=== PATIENT | female | born 1985 | race Caucasian/White ===

== ENCOUNTER 2023-08-23 08:43 | Outpatient (OUT) | payer OTHER, SELFPAY ==
--- NOTE | 2023-08-23 | XR_ITS ---
The [address] [address] Patient Name: JENNIFER RUTH MRN: [id number] date: 1985 Sex: F Assigned Patient Location: Current Patient Location: Accession/Order Number: [id number] Exam Date: 08/23/2023 08:46 Report Date: 08/23/2023 13:20 At the request of: DANIELLE PEREZ Procedure: XR ankle RT min 3V PROCEDURE: XR ankle RT min 3V HISTORY: RIGHT ANKLE PAIN , rolled ankle COMPARISON: None. FINDINGS: BONES:No fracture, acute abnormality, or significant arthropathy. SOFT TISSUES:No visible soft tissue swelling. EFFUSION:None visible. OTHER: Negative. XR/XR ankle RT min 3V IMPRESSION: 1. No acute bone abnormality. Electronically authenticated by: BALDO GAUTHIER Date: 08/23/2023 13:20
== END 2023-08-23 08:44 | disposition home or self-care (01) ==
PROVIDERS: Visit Provider Podiatrist Foot & Ankle Surgery
DX: M25.571 Pain in right ankle and joints of right foot (principal)
CPT/HCPCS: 73610

== ENCOUNTER 2023-08-26 09:38 | Outpatient (OUT) | payer OTHER, SELFPAY ==
--- NOTE | 2023-08-26 09:47 | US_ITS ---
[place] [id number] Patient Name: JENNIFER RUTH MRN: [id number] date: 1985 Sex: F Assigned Patient Location: [facility] Current Patient Location: ED.MAIN Accession/Order Number: [id number] Exam Date: 08/26/2023 09:50 Report Date: 08/26/2023 11:33 At the request of: DANIELLE PEREZ Procedure: US venous doppler LE RT EXAM: US venous doppler LE RT HISTORY: Leg Swelling COMPARISON: None. TECHNIQUE: Grayscale, color and Doppler FINDINGS: Region: Right leg Thrombus: Echogenic thrombus in 2 peroneal veins Flow: Absent flow corresponding to thrombus Compressibility: Noncompressibility corresponding to thrombus Augmentation: Normal proximal augmentation US/US venous doppler LE RT IMPRESSION: Occlusive deep vein thrombus identified in both mid calf peroneal veins Electronically authenticated by: GIULIANA KWAN Date: 08/26/2023 11:33
--- OUTSIDE RECORDS SUMMARY | 2023-08-26 09:48 | XMS_ITS | CCD ---
Author Organization [facility] Care Team Providers Care Director Banking Name Role Phone MIGUEL LANIER Attending Unavailable NEO BURTON Primary Care Unavailable Neo Burton Primary Care Provider KELSEA PASTOR Primary Care Unavailable PATRICA HERNANDEZ Attending Unavailable PATRICA HERNANDEZ Referring Unavailable KELSEA PASTOR Primary Care Unavailable MEENAKSHI FIERRO Referring Unavailable NEO BURTON Primary Care Unavailable Allergies Allergy Classification Reported Allergen(s) Allergy Type Date of Onset Reaction(s) Facility (1 source) Adhesive Tape Propensity to adverse reactions to drug 0 [place] (1 source) Amoxicillin Drug Allergy 0 Hives [place] (2 sources) Azithromycin; Translations: [AZITHROMYCIN] Drug Allergy 5 Diarrhea [place] (1 source) ADHESIVE TAPE-SILICONES; Translations: [ADHESIVE TAPE-SILICONES] Propensity to adverse reactions to drug (disorder) 9 [facility] (1 source) AMOXICILLIN-POT CLAVULANATE; Translations: [AMOXICILLIN-POT CLAVULANATE] Propensity to adverse reactions to drug (disorder) 1 [facility] Medications Current Medications Medication Drug Class(es) Dates Sig (Normalized) Sig (Original) acetaminophen 325 mg oral tablet (1 source) Start: 02-16-2020 take 2 tablets by mouth every six hours as needed for pain acetaminophen (TYLENOL) 325 MG tablet Take 2 tablets by mouth every 6 hours as needed for Pain 60 tablet 0 02/16/2020 Active 200 actuat albuterol 0.09 mg/actuat metered dose inhaler (1 source) beta2-Adrenergic Agonist Start: 05-20-2016 albuterol sulfate HFA (PROAIR HFA) 108 (90 BASE) MCG/ACT inhaler Indications: Sore throat 2 PUFFS QID FOR 7 DAYS THEN PRN 1 Inhaler 0 05/20/2016 Active cholecalciferol 1000 unt oral capsule (1 source) Vitamin D take 1 capsule by mouth once daily vitamin D 1000 UNITS CAPS Take 1 capsule by mouth daily 0 Active fluconazole 100 mg oral tablet (1 source) Azole Antifungal take 1 tablet by mouth once daily fluconazole (DIFLUCAN) 100 MG tablet Take 100 mg by mouth daily 0 Active ibuprofen 200 mg oral tablet (2 sources) Nonsteroidal Anti-inflammatory Drug Start: 02-16-2020 take 2 tablets by mouth every six hours as needed for pain ibuprofen (ADVIL;MOTRIN) 200 MG tablet Take 2 tablets by mouth every 6 hours as needed for Pain or Fever 60 tablet 0 02/16/2020 Active Start: 05-20-2016 take 1 tablet by maite th every eight hours as needed for pain ibuprofen (ADVIL;MOTRIN) 800 MG tablet Indications: Sore throat Take 1 tablet by mouth every 8 hours as needed for Pain 120 tablet 1 05/20/2016 Active Multiple Vitamins-Calcium (DAILY VITAMINS FOR WOMEN PO) (1 source) take 1 tablet by mouth once daily Multiple Vitamins-Calcium (DAILY VITAMINS FOR WOMEN PO) Take 1 tablet by mouth daily 0 Active Problems Active Problems Problem Classification Problem Date Documented Da te Episodic/Chronic External cause codes: Fall (1 source) Fall; Translations: [Fall, initial encounter] Spondylosis; intervertebral disc disorders; other back problems (1 source) Acute low back pain; Translations: [Acute bilateral low back pain without sciatica] Episodic Sprains and strains (2 sources) Sprain of unspecified ligament of right ankle, initial encounter; Translations: [Sprain of unspecified ligament of right ankle, initial encounter] Onset: 07-18-2023 Episodic Unclassified (1 source) Ankle Injury Onset: 07-18-2023 Unclassified (1 source) Rt ankle injury Onset: 07-18-2023 Past or Other Problems Problem Classification Problem Date Documented Da te Episodic/Chronic Other upper respiratory infections (2 sources) Acute maxillary sinusitis; Translations: [Sore throat symptom] Onset: 05-20-2016 Resolved: 01-04-2018 06-01-2016 Episodic Results Test Name Value Interpretation Reference Range Facil ity MRI ANKLE RIGHT WO CONTRASTo n 08-11-2023 MRI ANKLE RIGHT WO CONTRAST EXAMINATION: MRI OF THE RIGHT ANKLE WITHOUT CONTRAS, 08/11/2023 12:14 pm TECHNIQUE: Multiplanar multisequence MRI of the right ankle was performed without the administration of intravenous contrast. COMPARISON: None HISTORY: ORDERING SYSTEM PROVIDED HISTORY: Sprain of right ankle, initial encounter. 38-year-old female with right ankle sprain. FINDINGS: SYNDESMOTIC LIGAMENTS: The anterior-inferior tibiofibular ligament, interosseous membrane and posterior-inferior tibiofibular ligaments are normal. LATERAL COLLATERAL LIGAMENT COMPLEX: Fluid surrounds the slightly amorphous anterior and posterior talofibular ligaments. Slight thickening and periligamentous fluid surrounding the calcaneofibular ligament. Findings likely represent grade 1-2 sprain of the lateral collateral ligamentous complex. DELTOID LIGAMENT COMPLEX: Partial thickness tearing of the deep portion of the medial deltoid ligament complex. SINUS TARSI AND SPRING LIGAMENT: Mild edema in the sinus tarsi fat. Lisfranc ligament complex appears continuous/intact. MEDIAL TENDONS: Mild insertional posterior tibialis tendinosis. Flexor digitorum and hallucis longus tendons appear grossly intact without evidence of tearing. LATERAL TENDONS: Low-grade partial split tearing of the posterior peroneus brevis tendon with mild to moderate peroneus brevis tendinosis. Peroneus longus tendon appears intact. ANTERIOR TENDONS: The tibialis anterior, extensor hallucis longus and extensor digitorum longus tendons are normal in position, morphology and signal. ACHILLES TENDON: The Achilles tendon is normal in position, morphology and signal. No associated bursitis. PLANTAR FASCIA: The medial and lateral bundles of the plantar fascia are normal in morphology and signal. There is no evidence of acute plantar fasciitis or tear. No evidence of plantar fascial nodules. TARSAL TUNNEL: There are no obstructing lesions within the tarsal tunnel. BONE MARROW: Nondisplaced fracturing and marrow edema/bone contusion involving the talus centered around the talar neck best seen on image 7, series 2 and series 3. Bone contusions at the medial malleolus and lateral malleolus. No marginal erosions. Bone marrow signal intensity within the remaining visualized osseous structures otherwise grossly unremarkable. No tarsal coalition. Os trigonum. No acute displaced fracture or dislocation. JOINT SPACES: Small tibiotalar and subtalar effusions. Mild degenerative changes of the midfoot and TMT joints. SOFT TISSUES: Mild soft tissue edema about the right ankle. No organized fluid collection. IMPRESSION: 1. Nondisplaced fracturing and marrow edema/bone contusion at the talus primarily centered around the talar neck. 2. Bone contusions at the medial malleolus and lateral malleolus. 3. Mild edema in the soft tissues about the ankle. 4. Small tibiotalar and subtalar effusions. Grade 2 lateral ligamentous sprain. Partial tearing of the deep portion of medial deltoid ligament complex. 5. Low-grade partial split tearing of posterior peroneus brevis tendon with mild to moderate peroneus brevis tendinosis. 6. Mild insertional posterior tibialis tendinosis. Interpreted by: Avinash Rose MD Signed by: Avinash Rose MD 08/11/23 Final result Normal [facility] XR ANKLE RT MIN 3 VWSon 04-0 XR ANKLE RT MIN 3 VWS XR ANKLE RT MIN 3 VWS HISTORY: A 38-year-old female with the history of the twisting injury to the right ankle today. Complaining of pain and swelling on the lateral aspect of the right ankle. TECHNIQUE: Right ankle: 3 views COMPARISON: No relevant prior studies are available for comparison. FINDINGS: There is no evidence of fracture or acute bony pathology. Ankle mortise is intact. Bones and joints are intact. There is soft tissue swelling overlying the lateral malleolus. IMPRESSION: * Soft tissue swelling overlying the lateral malleolus but no evidence of fracture or acute bony pathology. Finalized by Jung Stafford MD on 07/18/2023 1:57 PM Normal [facility] XR LUMBAR SPINE (2-3 VIEWS)o n 02-17-2020 XR LUMBAR SPINE (2-3 VIEWS) EXAMINATION: THREE XRAY VIEWS OF THE LUMBAR SPINE 02/16/2020 10:00 pm COMPARISON: None. HISTORY: ORDERING SYSTEM PROVIDED HISTORY: fall TECHNOLOGIST PROVIDED HISTORY: fall Reason for Exam: right ischial spine tenderness Acuity: Acute Type of Exam: Initial FINDINGS: Lumbar vertebral bodies are normally aligned. Vertebral body heights and disc spaces are well preserved. Pedicles are intact. No acute fracture or traumatic malalignment is present. Minimal degenerative changes present. IMPRESSION: No acute osseous abnormality involving the lumbar spine Interpreted by: Suman Chow DO Signed by: Suman Chow DO 02/16/20 Final result Normal [facility] XR PELVIS (1-2 VIEWS)on XR PELVIS (1-2 VIEWS) EXAMINATION: ONE XRAY VIEW OF THE PELVIS 02/16/2020 10:00 pm COMPARISON: None. HISTORY: ORDERING SYSTEM PROVIDED HISTORY: right ischial spine tenderness TECHNOLOGIST PROVIDED HISTORY: right ischial spine tenderness Reason for Exam: pain Acuity: Acute Type of Exam: Initial FINDINGS: No evidence of pelvic fracture. Bilateral hips demonstrate normal alignment. No focal osseous lesion. SI joints are symmetric. IMPRESSION: No acute abnormality of the pelvis. Interpreted by: Suman Chow DO Signed by: Suman Chow DO 02/16/20 Final result Normal [facility] HCG, ,Urineon 02-15 Beta HCG ( test) Ql (U) Negative Normal [facility] Comment on above: Result Comment: Spec imens with hCG levels near the threshold of the test (25 mIU/mL) may give a negative or indeterminate result. In such cases, another test should be performed with a new specimen in 48-72 hours. If early is suspected clinically in this setting, correlation with quantitative serum b-hCG level is suggested. Performed By: #### U HCG #### [facility] [address] [place] [address] Vp Analysis: Virgil Daniels DO , Urineon 0 Beta HCG ( test) Ql (U) Negative NEGATIVE [facility], [facility] Comment on above: Specimens with hCG l evels near the threshold of the test (25 mIU/mL) may give a negative or indeterminate result. In such cases, another test should be performed with a new specimen in 48-72 hours. If early is suspected clinically in this setting, correlation with quantitative serum b-hCG level is suggested. XR LUMBAR SPINE (2-3 VIEWS)o n 02-16-2020 No acute osseous abnormality involving the lumbar spine [facility] EXAMINATION: THREE XRAY VIEWS OF THE LUMBAR SPINE 02/16/2020 10:00 pm COMPARISON: None. HISTORY: ORDERING SYSTEM PROVIDED HISTORY: fall TECHNOLOGIST PROVIDED HISTORY: fall Reason for Exam: right ischial spine tenderness Acuity: Acute Type of Exam: Initial FINDINGS: Lumbar vertebral bodies are normally aligned. Vertebral body heights and disc spaces are well preserved. Pedicles are intact. No acute fracture or traumatic malalignment is present. Minimal degenerative changes present. [facility] [place] Yonas, [facility] Incoming Radiant Results From [employer] - 02/16/2020 10:16 PM EST EXAMINATION: THREE XRAY VIEWS OF THE LUMBAR SPINE 02/16/2020 10:00 pm COMPARISON: None. HISTORY: ORDERING SYSTEM PROVIDED HISTORY: fall TECHNOLOGIST PROVIDED HISTORY: fall Reason for Exam: right ischial spine tenderness Acuity: Acute Type of Exam: Initial FINDINGS: Lumbar vertebral bodies are normally aligned. Vertebral body heights and disc spaces are well preserved. Pedicles are intact. No acute fracture or traumatic malalignment is present. Minimal degenerative changes present. IMPRESSION: No acute osseous abnormality involving the lumbar spine [facility] [place] XR PELVIS (1-2 VIEWS)on No acute abnormality of the pelvis. [facility] [place] EXAMINATION: ONE XRA Y VIEW OF THE PELVIS 02/16/2020 10:00 pm COMPARISON: None. HISTORY: ORDERING SYSTEM PROVIDED HISTORY: right ischial spine tenderness TECHNOLOGIST PROVIDED HISTORY: right ischial spine tenderness Reason for Exam: pain Acuity: Acute Type of Exam: Initial FINDINGS: No evidence of pelvic fracture. Bilateral hips demonstrate normal alignment. No focal osseous lesion. SI joints are symmetric. [facility] [place], [facility] Incoming Radiant Results From [employer] - 02/16/2020 10:15 PM EST EXAMINATION: ONE XRAY VIEW OF THE PELVIS 02/16/2020 10:00 pm COMPARISON: None. HISTORY: ORDERING SYSTEM PROVIDED HISTORY: right ischial spine tenderness TECHNOLOGIST PROVIDED HISTORY: right ischial spine tenderness Reason for Exam: pain Acuity: Acute Type of Exam: Initial FINDINGS: No evidence of pelvic fracture. Bilateral hips demonstrate normal alignment. No focal osseous lesion. SI joints are symmetric. IMPRESSION: No acute abnormality of the pelvis. [facility] [place] Vital Signs Date Time Vital Sign Value Performing Clinician Najma johnston 02-16-2020 20:16-0500 BMI (Body Mass Index) 30.55 kg/m2 [facility] [place] 02-16-2020 20:16-0500 Body weight 80.74 kg Miguel Lanier [facility] , [place] 02-16-2020 20:16-0500 BP Diastolic 72 mm[Hg] Miguel Lanier [facility] , [place] 02-16-2020 20:16-0500 BP Systolic 125 mm[Hg] Miguel Lanier [facility] , [place] 02-16-2020 20:16-0500 Height 162.6 cm Miguel Lanier [facility] , [place] 02-16-2020 20:16-0500 Pulse (Heart Rate) 89 /min Miguel Lanier [facility], [place] 02-16-2020 20:16-0500 Pulse Oximetry 99 % Miguel Lanier [facility] , [place] 02-16-2020 20:16-0500 Respiratory Rate 18 /min [facility], [place] Encounters Encounter Date Encounter Type Care Provider Facility Start: 08-11-2023 End: 08-14-2023 ambulatory MEENAKSHI Alfredo [facility] Start: 07-18-2023 End: 07-19-2023 Emergency department patient visit [facility] Start: 02-16-2020 End: 02-17-2020 Emergency department patient visit [facility] Start: 02-16-2020 End: 02-16-2020 Emergency department patient visit Miguel Lanier Work Phone: [facility] ED Comment on above: Fall, initial encoun ter (Primary Dx); Acute bilateral low back pain without sciatica Procedures Date Procedure Procedure Detail Performing Clinician Start: 02-17-2020 Radex spine lumbosac ral 2/3 views MIGUEL LANIER Start: 02-17-2020 Radiologic examinati on pelvis 1/2 views MIGUEL LANIER Start: 02-16-2020 Urine test visual color cmprsn meths MIGUEL LANIER Start: 02-16-2020 Radex spine lumbosac ral 2/3 views Nahum Lerma Work Phone: Start: 02-16-2020 Radiologic examinati on pelvis 1/2 views Nahum Lerma Work Phone: Start: 02-16-2020 Urine test visual color cmprsn meths Nahum Lerma Work Phone: Plan of Treatment Date Care Activity Detail Author Start: 12-11-2019 Influenza vaccination Flu vaccine (# 1) [place] Start: 2004 Screening for malign ant neoplasm of cervix Cervical cancer screen [place] Start: 2002 DTaP/Tdap/Td vaccine (1 - Tdap) DTaP/Tdap/Td vaccine (1 - Tdap) [place] Start: 1998 HIV screening HIV screen [facility], [place] Start: 1989 Pneumococcal 0-64 ye ars Vaccine (1 of 1 - PPSV23) Pneumococcal 0-64 years Vaccine (1 of 1 - PPSV23) [place] Start: 1984 Varicella vaccine (1 of 2 - 2-dose childhood series) Varicella vaccine (1 of 2 - 2-dose childhood series) [place] Payers Date Payer Category Payer Unknown [id number] 1985 Unknown [id number] 1985 Unknown [id number] 1985 Unknown [id number] 1985 Unknown [id number] Social History Date Type Detail Facility Start: 02-16-2020 [facility] [place] History of tobacco use Cigarette Smoker M [place] Start: 02-16-2020 Cigarettes smoked current (pack per day) - Reported [place] Start: 02-16-2020 Tobacco use and exposure Never used [place] Start: 02-16-2020 Alcohol intake Current non-dr end maker of alcohol (finding) [place] Sex Assigned At Not on file [place] Exposure to SARS-CoV -2 (event) Not sure [facility] [place], [place] Summary Purpose Family History No Family History Records FoundNo Family History Records FoundNo Family History Records Found Advance Directives No Advanced Directives Records FoundDocuments on File Type Date Recorded 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 For pain use acetaminophen (Tylenol) or ibuprofen(Motrin / Advil), unless prescribed medications that have acetaminophen or ibuprofen (or similar medications) in it. You can take over the counter acetaminophen tablets (1 2 tablets of the 500-mg strength every 6 hours) or ibuprofen tablets (2 tablets every 4 hours). Use an ice pack or bag filled with ice and apply to the injured area 3 4 times a day for 15 20 minutes each time. If the injury is older than 3 days, then use a heating pad to help relax the muscles. PLEASE RETURN TO THE EMERGENCY DEPARTMENT IMMEDIATELY for worsening of pain, inability to move yourmuscle, tingling or loss of sensation, inability to walk, or if you develop any concerning symptomssuch as: high fever not relieved by acetaminophen (Tylenol) and/or ibuprofen (Motrin / Advil), chills, feeling of your heart fluttering or racing, persistent nausea and/or vomiting, vomiting up blood, blood in your stool, loss of consciousness, numbness, weakness or tingling in the arms or legs or change in color of the extremities, changes in mental status, persistent headache, blurry vision, loss of bladder / bowel control, unable to follow up with your physician, or other any other care or co ncern. documented in this encounter Assessments Diagnosis Fall, initial encounter Acute bilateral low back pain without sciatica Additional Source Comments INFORMATION SOURCE (unrecogn ized section and content) DATE CREATED AUTHOR 02/16/2020 [facility] DATE CREATED AUTHOR AUTHOR'S ORGANIZ ATION 07/19/2023 [facility] DATE CREATED AUTHOR AUTHOR'S ORGANIZ ATION 08/14/2023 [facility] Reason for Visit (unrecogniz ed section and content) Reason Comments Fall Back Pain Hip Pain FOR RECORDS PERTAINING TO PATIENTS WHO ARE OR HAVE BEEN ENROLLED IN A CHEMICAL DEPENDENCY/SUBSTANCEABUSE PROGRAM, SOME INFORMATION MAY BE OMITTED. This clinical summary was aggregated from multiple sources. Caution should be exercised in using it in the provision of clinical care. This summary normalizes information from multiple sources, and as a consequence, information in this document may materially change the coding, format and clinical context of patient data. In addition, data may be omitted in some cases. CLINICAL DECISIONS SHOULD BE BASED ON THE PRIMARY CLINICAL RECORDS. [facility]. provides no warranty or guarantee of the accuracy or completeness of information in this document.
== END 2023-08-26 09:39 | disposition home or self-care (01) ==
LOC: RAD 09:39
PROVIDERS: Visit Provider Podiatrist Foot & Ankle Surgery
DX: R22.42 Localized swelling, mass and lump, left lower limb (principal); I82.451 Acute embolism and thrombosis of right peroneal vein
CPT/HCPCS: 93971

== ENCOUNTER 2023-08-26 10:32 | Emergency (ER) | payer OTHER, SELFPAY ==
[2023-08-26 10:38] VITALS: BP 132/63; PULSE 101; TEMP 36.9; O2SAT 98; BMI 30.9
--- OUTSIDE RECORDS SUMMARY | 2023-08-26 10:46 | XMS_ITS | CCD ---
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 Name Role Phone MIGUEL LANIER Attending Unavailable NEO BURTON Primary Care Unavailable Neo Burton Primary Care Provider [phone] KELSEA PASTOR Primary Care Unavailable PATRICA HERNANDEZ Attending Unavailable PATRICA HERNANDEZ Referring Unavailable KELSEA PASTOR Primary Care Unavailable MEENAKSHI FIERRO Referring Unavailable NEO BURTON Primary Care Unavailable Allergies Allergy Classification Reported Allergen(s) Allergy Type Date of Onset Reaction(s) Facility (1 source) Adhesive Tape Propensity to adverse reactions to drug 0 Rash [place] (1 source) Amoxicillin Drug Allergy 0 Hives [place] (2 sources) Azithromycin; Translations: [AZITHROMYCIN] Drug Allergy 5 Diarrhea [place] (1 source) ADHESIVE TAPE-SILICONES; Translations: [ADHESIVE [...] Avinash Rose MD 08/11/23 Final result Normal [facility] XR ANKLE RT MIN 3 VWSon [...] Stafford MD on 07/18/2023 1:57 PM Normal [facility] XR LUMBAR SPINE (2-3 VIEWS)o n [...] Suman Chow DO 02/16/20 Final result Normal [facility] XR PELVIS (1-2 VIEWS)on XR PELVIS (1-2 [...] Suman Chow DO 02/16/20 Final result Normal [facility] HCG, ,Urineon 02-15 Beta HCG ( test) Ql (U) Negative Normal NEG [facility] Comment on above: Result Comment: Spec imens with hCG levels near the threshold of the test (25 mIU/mL) may give a negative or indeterminate result. In such cases, another test should be performed with a new specimen in 48-72 hours. If early is suspected clinically in this setting, correlation with quantitative serum b-hCG level is suggested. Performed By: #### U HCG #### [facility] [address] [place] [address] Insurance Billing Specialist: Virgil Daniels DO , Urineon 0 Beta HCG ( test) Ql (U) Negative NEGATIVE [facility], [employer] Comment on above: Specimens with hCG l [...] acute osseous abnormality involving the lumbar spine [facility], [employer] EXAMINATION: THREE XRAY VIEWS OF THE LUMBAR [...] malalignment is present. Minimal degenerative changes present. [facility] [place], [facility] Incoming Radiant Results From [email or web address] - 02/16/2020 10:16 PM EST EXAMINATION: THREE [...] acute osseous abnormality involving the lumbar spine [facility] [place] XR PELVIS (1-2 VIEWS)on No acute abnormality of the pelvis. [facility] [place] EXAMINATION: ONE XRA Y VIEW OF THE PELVIS 02/16/2020 10:00 pm COMPARISON: None. HISTORY: ORDERING SYSTEM PROVIDED HISTORY: right ischial spine tenderness TECHNOLOGIST PROVIDED HISTORY: right ischial spine tenderness Reason for Exam: pain Acuity: Acute Type of Exam: Initial FINDINGS: No evidence of pelvic fracture. Bilateral hips demonstrate normal alignment. No focal osseous lesion. SI joints are symmetric. [facility] [place], [facility] Incoming Radiant Results From [employer] - 02/16/2020 10:15 PM EST EXAMINATION: ONE [...] IMPRESSION: No acute abnormality of the pelvis. [facility] [place] Vital Signs Date Time Vital Sign Value Performing Clinician Najma johnston 02-16-2020 20:16-0500 BMI (Body Mass Index) 30.55 kg/m2 [facility] [place] 02-16-2020 20:16-0500 Body weight 80.74 kg Miguel Lanier [facility] , [place] 02-16-2020 20:16-0500 BP Diastolic 72 mm[Hg] Miguel Lanier [facility] , [place] 02-16-2020 20:16-0500 BP Systolic 125 mm[Hg] Miguel Lanier [facility] , [place] 02-16-2020 20:16-0500 Height 162.6 cm Miguel Lanier [facility] , [place] 02-16-2020 20:16-0500 Pulse (Heart Rate) 89 /min Miguel Lanier [facility], [place] 02-16-2020 20:16-0500 Pulse Oximetry 99 % Miguel Lanier [facility] , [place] 02-16-2020 20:16-0500 Respiratory Rate 18 /min Miguel [facility] H, [place] Encounters Encounter Date Encounter Type Care Provider Facility Start: 08-11-2023 End: 08-14-2023 ambulatory MEENAKSHI [facility]o [facility] Start: 07-18-2023 End: 07-19-2023 Emergency department patient visit [facility] Start: 02-16-2020 End: 02-17-2020 Emergency department patient visit [facility] Start: 02-16-2020 End: 02-16-2020 Emergency department patient visit Miguel Lanier Work Phone: [facility] ED Comment on above: Fall, initial encoun [...] 12-11-2019 Influenza vaccination Flu vaccine (# 1) [place], [place] Start: 2004 Screening for malign ant neoplasm of cervix Cervical cancer screen [place], [place] Start: 2002 DTaP/Tdap/Td vaccine (1 - Tdap) DTaP/Tdap/Td vaccine (1 - Tdap) [place], [place] Start: 1998 HIV screening HIV screen [facility] [place] Start: 1989 Pneumococcal 0-64 ye ars Vaccine (1 of 1 - PPSV23) Pneumococcal 0-64 years Vaccine (1 of 1 - PPSV23) [place], [place] Start: 1984 Varicella vaccine (1 of 2 - 2-dose childhood series) Varicella vaccine (1 of 2 - 2-dose childhood series) [place] Payers Date Payer Category Payer Unknown [id number] 1985 Unknown [id number] 1985 Unknown [id number] 1983 Unknown [id number] 1983 Unknown [id number] [id number] Social History Date Type Detail Facility Start: 02-16-2020 [facility] day [place] History of tobacco use Cigarette Smoker M [place] Start: 02-16-2020 Cigarettes smoked current (pack per day) - Reported [place] Start: 02-16-2020 Tobacco use and exposure Never used [place] Start: 02-16-2020 Alcohol intake Current non-dr clamper of alcohol (finding) [place] Sex Assigned At Not on file [place] Exposure to SARS-CoV -2 (event) Not sure [facility] [place] Summary Purpose Family History No Family History Records FoundNo Family History Records FoundNo Family History Records Found Advance Directives No Advanced Directives Records FoundDocuments on File Type Date Recorded 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 [facility] [employer] [facility]. provides no warranty or guarantee of the accuracy or completeness of information in this document.
--- NOTE | 2023-08-26 12:54 | ED_ITS ---
HPI HPI - General Adult General Chief complaint: Skin/Abscess/Foreign Body Stated complaint: RIGHT LEG BLOOD CLOT, CLINIC REFERRAL Time Seen by Provider: 08/26/23 12:25 Source: patient Mode of arrival: walk-in Limitations: no limitations History of Present Illness HPI narrative: Patient is a 38-year-old female who is presenting to the ER today from ultrasound with a noted right mid calf DVT to both peroneal veins. Patient has no chest pain, no shortness of breath. Patient had a injury in early July to her right lower extremity/right foot. Patient initially saw her PCP Dr. Varghese, and was diagnosed with right ankle/foot sprain. Patient did follow-up with Dr. Wright, it was noted that patient did have a talus fracture along with the sprains. Patient has been in a surgical boot since. Patient is also had a knee scooter that she has been using to help with mobility. Patient is been doing a lot of driving up to the [facility] secondary to her mom's medical conditions and hospital stays. Patient has no previous DVT. No control. Patient arrived on crutches. Sisters at bedside. Patient has rapid speech, admittedly anxious. Mild swelling to the right calf compared to left. No other acute complaints. All systems are negative except as noted/marked. All systems reviewed and otherwise negative. Nurses note and vital signs reviewed and patient is not hypoxic. General: The patient appears well and in no apparent distress. Patient is resting comfortably on cart. Patient is not toxic, lethargic, or listless Skin: Warm, dry, no pallor noted. There is no rash noted. No petechiae, purpura. Head: Normocephalic, atraumatic Eye: Normal conjunctiva, no drainage, EOMI. PERRL Ears, Nose, Mouth, and Throat: oral mucosa is moist. Nares patent. Mouth without vesicles. Cardiovascular: Regular Rate and Rhythm, no murmur, gallop, rub Respiratory: Patient is in no distress, no accessory muscle use, lungs are clear to auscultation, no wheezing, rales or rhonchi Musculoskeletal: Patient has full range of motion of all of the extremities. Patient has no tenderness to palpation to the right Achilles, mild tenderness to palpation to bilateral malleoli of the right ankle. Patient has moderate tenderness to palpation to the right mid calf, mild unilateral swelling to the right leg. No ecchymosis, no pitting edema. She has no pain the posterior aspect of the right popliteal fossa or the right posterior thigh. Otherwise patient has no motor, sensory, or focal neurological deficits Neurological: A&O x4, normal speech Psychiatric: Cooperative Related Data Previous Rx's ?Medication ?Instructions ?Recorded apixaban 5 mg (74 tabs) tablets in 5 mg PO Q12H #74 ea 08/26/23 a dose pack (Eliquis DVT-PE Treat 30D Start) Allergies Allergy/AdvReac Type Severity Reaction Status Date / Time adhesive tape AdvReac Mild Verified 08/26/23 10:41 amoxicillin [From Augmentin] AdvReac Mild Verified 08/26/23 10:41 clavulanic acid AdvReac Mild Verified 08/26/23 10:41 [From Augmentin] onion AdvReac Mild Verified 08/26/23 10:41 Opioid HPI Opioid Management Most Recent Opioid Data: No Data to Display Exam Constitutional Vital Signs, click to edit/add: Last Vital Signs Temp 98.4 F 08/26/23 10:38 Pulse 101 H 08/26/23 10:38 Resp 18 08/26/23 10:38 BP 132/63 08/26/23 10:38 Pulse Ox 98 08/26/23 10:38 O2 Del Method Room Air 08/26/23 10:38 Course Vital Signs Vital signs: Vital Signs Temperature 98.4 F 08/26/23 10:38 Pulse Rate 101 H 08/26/23 10:38 Respiratory Rate 18 08/26/23 10:38 Blood Pressure 132/63 08/26/23 10:38 Pulse Oximetry 98 08/26/23 10:38 Oxygen Delivery Method Room Air 08/26/23 10:38 Temperature 98.4 F 08/26/23 10:38 Pulse Rate 101 H 08/26/23 10:38 Respiratory Rate 18 08/26/23 10:38 Blood Pressure 132/63 08/26/23 10:38 Pulse Oximetry 98 08/26/23 10:38 Oxygen Delivery Method Room Air 08/26/23 10:38 Medical Decision Making MDM Narrative Medical decision making narrative: Patient had a outpatient ultrasound that showed right calf DVT. Patient was started on Eliquis. I have called Dr. Wright's office, nobody is available or in the office today. Patient does have a PCP, but she is following up with a new PCP in 3 weeks. Patient therefore was given 1 month of Eliquis to help her with treatment of right calf DVT. Patient has no other symptoms of chest pain, shortness of breath, or any other secondary concerns with right calf DVT. Patient is no longer using the knee scooter. Patient will continue to use crutches. Patient will continue wearing surgical boot. Ice elevation was discussed. No questions at discharge. The initial prescription I sent for the Eliquis starter pack was not covered by insurance. I did speak to the pharmacist at [facility] in [place]. I was able to write patient generic tablets of the Eliquis starter pack that will be covered by insurance. Patient is aware of this, thankful for time. Discharge Plan Discharge Stand Alone Forms: Portal Instructions Chief Complaint: Skin/Abscess/Foreign Body Clinical Impression: Acute deep vein thrombosis (DVT) of calf muscle vein of right lower extremity Patient Disposition: Home, Self-Care Time of Disposition Decision: 12:49 Condition: Fair Prescriptions / Home Meds: New Eliquis DVT-PE Treat 30D Start 5 mg (74 tabs) tablets,dose pack 5 mg PO Q12H Qty: 74 0RF Rx Instructions: As directed Print Language: [place] Instructions: Deep Vein Thrombosis (ED) Additional Instructions: Start taking your Eliquis today. Follow directions. Follow-up with PCP or Dr. Wright to help continue to manage Eliquis. Education of DVT was done at bedside and on discharge paperwork. You are giving a Eliquis coupon and starter pack information from the ER. Referrals: Physician,Non-Staff, [Primary Care Provider] - 1 week Discharge Date/Time: 08/26/23 13:05
== END 2023-08-26 13:05 | disposition home or self-care (01) ==
PROVIDERS: Emergency Provider Emergency Medicine
DX: I82.451 Acute embolism and thrombosis of right peroneal vein (principal)
CPT/HCPCS: 93971; 99283

== ENCOUNTER 2023-08-30 07:44 | Outpatient (OUT) | payer OTHER, SELFPAY ==
--- NOTE | 2023-08-30 07:47 | CT_ITS ---
The [address] [address] Patient Name: JENNIFER RUTH MRN: [id number] date: 1985 Sex: F Assigned Patient Location: CT Current Patient Location: Accession/Order Number: [id number] Exam Date: 08/30/2023 07:54 Report Date: 08/31/2023 05:32 At the request of: DANIELLE PEREZ Procedure: CT ankle RT wo con EXAMINATION: CT ankle RT wo con HISTORY: Talar Neck Fracture COMPARISON: XR ankle right 08/23/2023, MRI ankle right 09-01 TECHNIQUE: Multi-planar CT images were created without and/or with IV contrast according to examination type. Dose reduction techniques were achieved by using automated exposure control and/or adjustment of mA and/or kV according to patient size and/or use of iterative reconstruction technique. FINDINGS: BONES: No visible fracture, dislocation, or bone lesion. SOFT TISSUES: Negative. No visible soft tissue swelling. EFFUSION: None visible. OTHER: Negative. CT/CT ankle RT wo con IMPRESSION: 1. No appreciable acute bone abnormality with specific attention to the talar neck. Prior MRI study showed prominent edema within the talus/talar neck region. No visible fracture on today's CT study. No cortical disruption or increased trabecular density. Electronically authenticated by: BALDO GAUTHIER Date: 08/31/2023 05:32
--- OUTSIDE RECORDS SUMMARY | 2023-08-30 07:59 | XMS_ITS | CCD ---
Author Organization [facility] Care Team Providers Care Parts Fabricator Name Role Phone MIGUEL LANIER Attending Unavailable NEO BURTON Primary Care Unavailable Neo Burton Primary Care Provider [phone] KELSEA PASTOR Primary Care Unavailable PATRICA HERNANDEZ Attending Unavailable PATRICA HERNANDEZ Referring Unavailable KELSEA PASTOR Primary Care Unavailable MEENAKSHI FIERRO Referring Unavailable NEO BURTON Primary Care Unavailable Allergies Allergy Classification Reported Allergen(s) Allergy Type Date of Onset Reaction(s) Facility (1 source) Adhesive Tape Propensity to adverse reactions to drug 0 Rash [place], [place] (1 source) Amoxicillin Drug Allergy 0 Hives [place], [place] (2 sources) Azithromycin; Translations: [AZITHROMYCIN] Drug Allergy 5 Diarrhea [place], [place] (1 source) ADHESIVE TAPE-SILICONES; Translations: [ADHESIVE [...] Avinash Rose MD 08/11/23 Final result Normal [facility] XR ANKLE RT MIN 3 VWSon [...] Stafford MD on 07/18/2023 1:57 PM Normal [facility] XR LUMBAR SPINE (2-3 VIEWS)o n [...] Suman Chow DO 02/16/20 Final result Normal [facility] XR PELVIS (1-2 VIEWS)on XR PELVIS (1-2 [...] Suman Chow DO 02/16/20 Final result Normal [facility] HCG, ,Urineon 02-15 Beta HCG ( test) Ql (U) Negative Normal NEG [facility] Comment on above: Result Comment: Spec imens with hCG levels near the threshold of the test (25 mIU/mL) may give a negative or indeterminate result. In such cases, another test should be performed with a new specimen in 48-72 hours. If early is suspected clinically in this setting, correlation with quantitative serum b-hCG level is suggested. Performed By: #### U HCG #### [facility] [address] [place] [address] Electronic Warfare Technician: Virgil Daniels DO , Urineon 0 Beta HCG ( test) Ql (U) Negative NEGATIVE [facility], [employer] Comment on above: Specimens with hCG l [...] acute osseous abnormality involving the lumbar spine [facility], [facility] EXAMINATION: THREE XRAY VIEWS OF THE LUMBAR [...] malalignment is present. Minimal degenerative changes present. [facility] [employer] [place], [facility] Incoming Radiant Results From [employer] - 02/16/2020 10:16 PM EST EXAMINATION: THREE [...] acute osseous abnormality involving the lumbar spine [facility] [place] XR PELVIS (1-2 VIEWS)on No acute abnormality of the pelvis. [facility] [place] EXAMINATION: ONE XRA Y VIEW OF THE PELVIS 02/16/2020 10:00 pm COMPARISON: None. HISTORY: ORDERING SYSTEM PROVIDED HISTORY: right ischial spine tenderness TECHNOLOGIST PROVIDED HISTORY: right ischial spine tenderness Reason for Exam: pain Acuity: Acute Type of Exam: Initial FINDINGS: No evidence of pelvic fracture. Bilateral hips demonstrate normal alignment. No focal osseous lesion. SI joints are symmetric. [facility] [place], [facility] Incoming Radiant Results From [employer] - 02/16/2020 10:15 PM EST EXAMINATION: ONE [...] IMPRESSION: No acute abnormality of the pelvis. [facility] [place] Vital Signs Date Time Vital Sign Value Performing Clinician Najma johnston 02-16-2020 20:16-0500 BMI (Body Mass Index) 30.55 kg/m2 Miguel Lanier [place] 02-16-2020 20:16-0500 Body weight 80.74 kg Miguel Lanier [facility] , [place] 02-16-2020 20:16-0500 BP Diastolic 72 mm[Hg] Miguel Lanier [facility] , [place] 02-16-2020 20:16-0500 BP Systolic 125 mm[Hg] Miguel Lanier [facility] , [place] 02-16-2020 20:16-0500 Height 162.6 cm Miguel [facility]ier [facility] , [place] 02-16-2020 20:16-0500 Pulse (Heart Rate) 89 /min Miguel Lanier [facility], [place] 02-16-2020 20:16-0500 Pulse Oximetry 99 % Miguel Lanier [facility] , [place] 02-16-2020 20:16-0500 Respiratory Rate 18 /min Miguel Lanier [facility], [place] Encounters Encounter Date Encounter Type Care Provider Facility Start: 08-11-2023 End: 08-14-2023 ambulatory MEENAKSHI FIERRO [facility] Start: 07-18-2023 End: 07-19-2023 Emergency department patient visit [facility] Start: 02-16-2020 End: 02-17-2020 Emergency department patient visit [facility] Start: 02-16-2020 End: 02-16-2020 Emergency department patient visit Miguel Lanier Work Phone: [facility] ED Comment on above: Fall, initial encoun [...] 12-11-2019 Influenza vaccination Flu vaccine (# 1) [place], [place] Start: 2004 Screening for malign ant neoplasm of cervix Cervical cancer screen [place], [place] Start: 2002 DTaP/Tdap/Td vaccine (1 - Tdap) DTaP/Tdap/Td vaccine (1 - Tdap) [place] Start: 1998 [facility] [place] [place] Start: 1989 Pneumococcal 0-64 ye ars Vaccine (1 of 1 - PPSV23) Pneumococcal 0-64 years Vaccine (1 of 1 - PPSV23) [place], [place] Start: 1984 Varicella vaccine (1 of 2 - 2-dose childhood series) Varicella vaccine (1 of 2 - 2-dose childhood series) [place], [place] Payers Date Payer Category Payer Unknown [id number] 1985 Unknown [id number] 1985 Unknown [id number] [id number] 1985 Unknown [id number] 1985 Unknown [id number] Social History Date Type Detail Facility Start: 02-16-2020 [facility] day smoker [place], [place] History of tobacco use Cigarette Smoker M [place], [place] Start: 02-16-2020 Cigarettes smoked current (pack per day) - Reported [place], [place] Start: 02-16-2020 Tobacco use and exposure Never used [place], [place] Start: 02-16-2020 Alcohol intake Current non-dr print journalist of alcohol (finding) [place], [place] Sex Assigned At Not on file [place] Exposure to SARS-CoV -2 (event) Not sure [facility] [place] [place] Summary Purpose Family History No Family History Records FoundNo Family History Records FoundNo Family History Records Found Advance Directives No Advanced Directives Records FoundDocuments on File Type Date Recorded 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 [facility] [employer] [facility]. provides no warranty or guarantee of the accuracy or completeness of information in this document.
== END 2023-08-30 07:45 | disposition home or self-care (01) ==
LOC: CT 07:44
PROVIDERS: Visit Provider Podiatrist Foot & Ankle Surgery
DX: S92.114A Nondisplaced fracture of neck of right talus, initial encounter for closed fracture (principal)
CPT/HCPCS: 73700

== ENCOUNTER 2023-10-11 13:36 | Outpatient (OUT) | payer OTHER, SELFPAY ==
--- NOTE | 2023-10-11 | XR_ITS ---
The [address] [address] Patient Name: JENNIFER RUTH MRN: [id number] date: 1985 Sex: F Assigned Patient Location: Current Patient Location: Accession/Order Number: [id number] Exam Date: 10/11/2023 13:40 Report Date: 10/12/2023 15:25 At the request of: DANIELLE PEREZ Procedure: XR ankle RT min 3V PROCEDURE: XR ankle RT min 3V HISTORY: RIGHT ANKLE PAIN COMPARISON: XR ankle right 08/23/2023 FINDINGS: BONES:No acute fracture or appreciable healing fracture. Smooth articular surfaces and uniform joint spacing. SOFT TISSUES:Soft tissue swelling anterior to the ankle joint; nonspecific. EFFUSION:None visible. OTHER: Negative. XR/XR ankle RT min 3V IMPRESSION: 1. No appreciable acute bone abnormality, healing fracture, or significant degenerative changes. Electronically authenticated by: BALDO GAUTHIER Date: 10/12/2023 15:25
--- OUTSIDE RECORDS SUMMARY | 2023-10-11 13:56 | XMS_ITS ---
Patient Summarization (C-CDA 2.1 CCD) Created on: October 11, 2023 JENNIFER RUTH : 1985 Sex: Undifferentiated Author Organization Sample organization Care Team Providers Care Tire Fixer Name Role Phone MIGUEL LANIER Attending Unavailable PRINCESS, NEO T Primary Care Unavailable Princess, Neo T Primary Care Provider MEENAKSHI FIERRO Referring Unavailable PRINCESS, NEO T Primary Care Unavailable PASTOR, KELSEA A Primary Care Unavailable DAVID, PATRICA Attending Unavailable DAVID, PATRICA Referring Unavailable PASTOR, KELSEA A Primary Care Unavailable PASTOR, KELSEA A Primary Care Unavailable GIULIANA HERMOSILLO Attending Unavailable Mandeep DE PAZ Attending Unavailable PASTOR, KELSEA A. Referring Unavailable PASTOR, KELSEA A. Primary Care Unavailable Mandeep DE PAZ BRIONNA Referring Unavailable PASTOR, KELSEA A. Primary Care Unavailable PASTOR, KELSEA A Referring Unavailable APSTOR, KELSEA A Primary Care Unavailable MARILU ANGUIANO Attending Unavailable PASTOR, KELSEA A Referring Unavailable PASTOR, KELSEA A Primary Care Unavailable Allergies Allergy Classification Reported Allergen(s) Allergy Type Date of Onset Reaction(s) Facility (1 source) Adhesive Tape Propensity to adverse reactions to drug 0 Rash [place], [place] (2 sources) Amoxicillin; Translations: [AMOXICILLIN] Drug Allergy 0 Hives [place] (4 sources) Azithromycin; Translations: [AZITHROMYCIN] Drug Allergy 5 Diarrhea [place] (3 sources) ADHESIVE TAPE-SILICONES; Translations: [ADHESIVE TAPE-SILICONES] Propensity to adverse reactions to drug (disorder) 9 [facility] (3 sources) AMOXICILLIN-POT CLAVULANATE; Translations: [AMOXICILLIN-POT CLAVULANATE] Propensity to adverse reactions to drug (disorder) 1 [facility] Encounters Encounter Date Encounter Type Care Provider Facility Start: 10-10-2023 End: 10-10-2023 ambulatory MARILU Martinez [facility] Start: 09-20-2023 ambulatory KELSEA Alfredo [facility] Start: 09-16-2023 End: 09-16-2023 ambulatory [facility] Start: 09-16-2023 End: 09-16-2023 ambulatory [facility] Start: 09-15-2023 End: 09-15-2023 Emergency department patient visit KELSEA A [facility] Start: 08-11-2023 End: 08-14-2023 ambulatory MEENAKSHI FIERRO [facility] Start: 07-18-2023 End: 07-19-2023 Emergency department patient visit [facility] Start: 02-16-2020 End: 02-17-2020 Emergency department patient visit MIGUEL LANIER [facility] Start: 02-16-2020 End: 02-16-2020 Emergency department patient visit Miguel [facility] Work Phone: [facility] ED Comment on above: Fall, initial encoun ter (Primary Dx); Acute bilateral low back pain without sciatica Medications Current Medications Medication Drug Class(es) Dates [...] 1 tablet by mouth daily 0 Active Payers Date Payer Category Payer Unknown [id number] 1985 Unknown [id number] 2.16.8 [id number] 1985 Unknown [id number] 2.16. [id number] 1985 Unknown [id number] 2.16.8 [id number] 1985 Unknown [id number] 2.16.8 [id number] 1985 Unknown [id number] 2.16.8 [id number] 1985 Unknown [id number] 2.16.8 [id number] 1985 Unknown [id number] 2.16.8 [id number] 1985 Unknown [id number] 2.16.8 [id number] 1985 Unknown [id number] 2.16.8 [id number] Plan of Treatment Date Care Activity Detail Author Start: 12-11-2019 Influenza vaccination Flu vaccine (# 1) [place], [place] Start: 2004 Screening for malign ant neoplasm of cervix Cervical cancer screen [place], [place] Start: 2002 DTaP/Tdap/Td vaccine (1 - Tdap) DTaP/Tdap/Td vaccine (1 - Tdap) [place] Start: 1998 HIV screening HIV screen [facility] [place] Start: 1989 Pneumococcal 0-64 ye ars Vaccine (1 of 1 - PPSV23) Pneumococcal 0-64 years Vaccine (1 of 1 - PPSV23) [place], [place] Start: 1984 Varicella vaccine (1 of 2 - 2-dose childhood series) Varicella vaccine (1 of 2 - 2-dose childhood series) [place] Problems Active Problems Problem Classification Problem Date Documented Da te Episodic/Chronic External cause codes: Fall (1 source) Fall; Translations: [Fall, initial encounter] Other connective tissue disease (1 source) Pain in right leg; Translations: [Pain in right leg] Onset: 09-15-2023 Episodic Other connective tissue disease (1 source) Pain in lower limb Onset: 09-15-2023 Episodic Other screening for suspected conditions (not mental disorders or infectious disease) (1 source) Encounter for screening mammogram for malignant neoplasm of breast; Translations: [Encounter for screening mammogram for malignant neoplasm of breast] Onset: 10-10-2023 Episodic Phlebitis; thrombophlebitis and thromboembolism (1 source) Acute embolism and thrombosis of unspecified deep veins of right lower extremity; Translations: [Acute embolism and thrombosis of unspecified deep veins of right lower extremity] Onset: 09-16-2023 Episodic Residual codes; unclassified (1 source) Pain, unspecified; Translations: [Pain, unspecified] Onset: 09-20-2023 Episodic Spondylosis; intervertebral disc disorders; other back problems [...] (1 source) Rt ankle injury Onset: 07-18-2023 Unclassified (1 source) New Patient Onset: 10-10-2023 Past or Other Problems Problem Classification Problem Date Documented Da te Episodic/Chronic Other upper respiratory infections (2 sources) Acute maxillary sinusitis; Translations: [Sore throat symptom] Onset: 05-20-2016 Resolved: 01-04-2018 06-01-2016 Episodic Procedures Date Procedure Procedure Detail Performing Clinician [...] color cmprsn meths Nahum Lerma Work Phone: Results Test Name Value Interpretation Reference Range [...] Avinash Rose MD 08/11/23 Final result Normal [facility] XR ANKLE RT MIN 3 VWSon 04-0 [...] Stafford MD on 07/18/2023 1:57 PM Normal [facility] XR LUMBAR SPINE (2-3 VIEWS)o n 02-17-2020 [...] Suman Chow DO 02/16/20 Final result Normal [facility] XR PELVIS (1-2 VIEWS)on XR PELVIS [...] Suman Chow DO 02/16/20 Final result Normal [facility] HCG, ,Urineon 02-15 Beta HCG ( test) Ql (U) Negative Normal NEG [facility] Comment on above: Result Comment: Spec imens with hCG levels near the threshold of the test (25 mIU/mL) may give a negative or indeterminate result. In such cases, another test should be performed with a new specimen in 48-72 hours. If early is suspected clinically in this setting, correlation with quantitative serum b-hCG level is suggested. Performed By: #### U HCG #### [facility] [address] [place] [address] Classroom Technology Coach: Virgil Daniels DO , Urineon 0 Beta HCG ( test) Ql (U) Negative NEGATIVE [place], [place] Comment on above: Specimens with hCG l [...] acute osseous abnormality involving the lumbar spine [place] EXAMINATION: THREE XRAY VIEWS OF THE LUMBAR [...] malalignment is present. Minimal degenerative changes present. [place], [place] Yonas, [facility] Incoming Radiant Results From [employer] - 02/16/2020 10:16 PM EST EXAMINATION: THREE [...] acute osseous abnormality involving the lumbar spine [place] XR PELVIS (1-2 VIEWS)on No acute abnormality of the pelvis. [place] EXAMINATION: ONE XRA Y VIEW OF THE PELVIS 02/16/2020 10:00 pm COMPARISON: None. HISTORY: ORDERING SYSTEM PROVIDED HISTORY: right ischial spine tenderness TECHNOLOGIST PROVIDED HISTORY: right ischial spine tenderness Reason for Exam: pain Acuity: Acute Type of Exam: Initial FINDINGS: No evidence of pelvic fracture. Bilateral hips demonstrate normal alignment. No focal osseous lesion. SI joints are symmetric. [place], [place] Y[place], [facility] Incoming Radiant Results From [employer] - 02/16/2020 10:15 PM EST EXAMINATION: ONE [...] IMPRESSION: No acute abnormality of the pelvis. 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) [place] History of tobacco use Cigarette Smoker M [place], [place] Sex Assigned At Not on file [place] Exposure to SARS-CoV -2 (event) Not sure [place] Vital Signs Date Time Vital Sign Value Performing Clinician Faci lity 02-16-2020 20:16-0500 BMI (Body Mass Index) 30.55 kg/m2 Miguel Lanier [place], [place] 02-16-2020 20:16-0500 Body weight 80.74 kg Miguel [place] 02-16-2020 20:16-0500 BP Diastolic 72 mm[Hg] [place] 02-16-2020 20:16-0500 BP Systolic 125 mm[Hg] Miguel [facility] , [place] 02-16-2020 20:16-0500 Height 162.6 cm Miguel [place] 02-16-2020 20:16-0500 Pulse (Heart Rate) 89 /min Miguel [facility] AMILCAR 02-16-2020 20:16-0500 Pulse Oximetry 99 % Miguel [place] 02-16-2020 20:16-0500 Respiratory Rate 18 /min Miguel [facility] [place], [place] Summary Purpose Family History No Family History Records FoundNo Family History Records FoundNo Family History Records FoundNo Family History Records FoundNo Family History Records Found Advance Directives No Advanced Directives Records FoundDocuments on File Type Date 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 ACP-Advance Directive ACP-Power of Laundry Pricing Clerk Discharge Instructions * Instructions* Nahum Lerma MD [...] and content) DATE CREATED AUTHOR 02/16/2020 [facility] DATE CREATED AUTHOR AUTHOR'S ORGANIZ ATION 08/14/2023 [facility] DATE CREATED AUTHOR AUTHOR'S ORGANIZ ATION 09/17/2023 [facility] DATE CREATED AUTHOR AUTHOR'S ORGANIZ ATION 09/17/2023 [facility] DATE CREATED AUTHOR AUTHOR'S ORGANIZ ATION 10/11/2023 [facility] Reason for Visit (unrecogniz ed section and [...] BE BASED ON THE PRIMARY CLINICAL RECORDS. [employer] provides no warranty or guarantee of the accuracy or completeness of information in this document.
== END 2023-10-11 13:37 | disposition home or self-care (01) ==
LOC: EC 13:36
PROVIDERS: Visit Provider Podiatrist Foot & Ankle Surgery
DX: M25.571 Pain in right ankle and joints of right foot (principal)
CPT/HCPCS: 73610

== ENCOUNTER 2023-11-01 11:05 | Outpatient (OUT) | payer OTHER, SELFPAY ==
--- NOTE | 2023-11-01 | XR_ITS ---
[address] [address] Patient Name: JENNIFER RUTH MRN: [id number] date: 1985 Sex: F Assigned Patient Location: Current Patient Location: Accession/Order Number: [id number] Exam Date: 11/01/2023 11:10 Report Date: 11/02/2023 07:15 At the request of: DANIELLE PEREZ Procedure: XR ankle RT min 3V PROCEDURE: XR ankle RT min 3V COMPARISON: 10/11/2023 HISTORY: RIGHT ANKLE PAIN FINDINGS: BONES:No fracture, acute abnormality, or significant arthropathy. SOFT TISSUES:Negative. No visible soft tissue swelling. EFFUSION:None visible. OTHER: Negative. XR/XR ankle RT min 3V IMPRESSION: No acute radiographic abnormality Electronically authenticated by: GIULIANA KWAN Date: 11/02/2023 07:15
--- OUTSIDE RECORDS SUMMARY | 2023-11-01 11:22 | XMS_ITS | CCD ---
Author Organization [facility] Care Team Providers Care Food Supervisor Name Role Phone MIGUEL LANIER Attending Unavailable PRINCESS, NEO Wolf Primary Care Unavailable Princess, Neo T Primary Care Provider MEENAKSHI FIERRO Referring Unavailable PRINCESS, NEO T Primary Care Unavailable PASTOR, KELSEA A Primary Care Unavailable DAVID, PATRICA Attending Unavailable DAVID, PATRICA Referring Unavailable PASTOR, KELSEA A Primary Care Unavailable PASTOR, KELSEA A Primary Care Unavailable GIULIANA HERMOSILLO Attending Unavailable BHUPENDRARIDIMandeep Attending Unavailable PASTOR, KELSEA A. Referring Unavailable PASTOR, KELSEA A. Primary Care Unavailable Mandeep DE PAZ Referring Unavailable PASTOR, KELSEA A. Primary Care Unavailable PASTOR, KELSEA A Referring Unavailable PASTOR, KELSEA A Primary Care Unavailable ANGUIANO, MARILU Martinez Attending Unavailable PASTOR, KELSEA A Referring Unavailable PASTOR, KELSEA A Primary Care Unavailable MARILU ANGUIANO Attending Unavailable ANGUIANOMARILU SHARMA Referring Unavailable ANGUIANO, MARILU N Primary Care Unavailable Allergies Allergy Classification Reported Allergen(s) Allergy Type Date of Onset Reaction(s) Facility (1 source) Adhesive Tape Propensity to adverse reactions to drug 0 Rash [place], [place] (2 sources) Amoxicillin; Translations: [AMOXICILLIN] Drug Allergy 0 Hives [place] (4 sources) Azithromycin; Translations: [AZITHROMYCIN] Drug Allergy 5 Diarrhea [place] (3 sources) ADHESIVE TAPE-SILICONES; Translations: [ADHESIVE [...] tablet by mouth daily 0 Active Problems Problem Classification Problem Date Documented [...] malignant neoplasm of breast] Onset: 10-10-2023 Episodic Other upper respiratory disease (1 source) Nasal congestion Onset: 10-25-2023 Episodic Other upper respiratory infections (3 sources) Acute maxillary sinusitis; Translations: [Sore throat symptom] Onset: 05-20-2016 Resolved: 01-04-2018 06-01-2016 Episodic Phlebitis; thrombophlebitis and thromboembolism (1 source) [...] Unclassified (1 source) New Patient Onset: 10-10-2023 Results Test Name Value Interpretation Reference Range [...] Avinash Rose MD 08/11/23 Final result Normal [facility] XR ANKLE RT MIN 3 VWSon XR ANKLE RT MIN 3 VWS XR [...] Stafford MD on 07/18/2023 1:57 PM Normal [facility] XR LUMBAR SPINE (2-3 VIEWS)o n [...] Suman Chow DO 02/16/20 Final result Normal [facility] XR PELVIS (1-2 VIEWS)on XR PELVIS [...] Suman Chow DO 02/16/20 Final result Normal [facility] HCG, ,Urineon 02-15 Beta HCG ( test) Ql (U) Negative Normal NEG [facility] Comment on above: Result Comment: Spec imens with hCG levels near the threshold of the test (25 mIU/mL) may give a negative or indeterminate result. In such cases, another test should be performed with a new specimen in 48-72 hours. If early is suspected clinically in this setting, correlation with quantitative serum b-hCG level is suggested. Performed By: #### U HCG #### [facility] [address] [place] [address] Baker Operator Automatic: Virgil Daniels DO , Urineon 0 Beta HCG ( test) Ql (U) Negative NEGATIVE [place] Comment on above: Specimens with hCG [...] acute osseous abnormality involving the lumbar spine [facility] [place] EXAMINATION: THREE XRAY VIEWS OF THE LUMBAR [...] malalignment is present. Minimal degenerative changes present. [place] Y[place], [facility] Incoming Radiant Results From [employer] - 02/16/2020 10:16 PM EST EXAMINATION: THREE [...] acute osseous abnormality involving the lumbar spine [place] XR PELVIS (1-2 VIEWS)on No acute abnormality of the pelvis. [place] EXAMINATION: ONE XRA Y VIEW OF THE PELVIS 02/16/2020 10:00 pm COMPARISON: None. HISTORY: ORDERING SYSTEM PROVIDED HISTORY: right ischial spine tenderness TECHNOLOGIST PROVIDED HISTORY: right ischial spine tenderness Reason for Exam: pain Acuity: Acute Type of Exam: Initial FINDINGS: No evidence of pelvic fracture. Bilateral hips demonstrate normal alignment. No focal osseous lesion. SI joints are symmetric. [place], [facility] Incoming Radiant Results From [employer] - 02/16/2020 10:15 PM EST EXAMINATION: ONE [...] IMPRESSION: No acute abnormality of the pelvis. [place] Vital Signs Date Time Vital Sign Value Performing Clinician Najma johnston 02-16-2020 20:16-0500 BMI (Body Mass Index) 30.55 kg/m2 [place] 02-16-2020 20:16-0500 Body weight 80.74 kg [place] 02-16-2020 20:16-0500 BP Diastolic 72 mm[Hg] [place] 02-16-2020 20:16-0500 BP Systolic 125 mm[Hg] [place] 02-16-2020 20:16-0500 Height 162.6 cm [place] 02-16-2020 20:16-0500 Pulse (Heart Rate) 89 /min [place] 02-16-2020 20:16-0500 Pulse Oximetry 99 % [facility] [place] [facility] [place] 02-16-2020 20:16-0500 Respiratory Rate 18 /min [facility] [place] [place] Encounters Encounter Date Encounter Type Care Provider Facility Start: 10-25-2023 End: 10-25-2023 ambulatory [facility] Start: 10-10-2023 End: 10-10-2023 ambulatory [facility] Start: 09-20-2023 ambulatory [facility] Start: 09-16-2023 End: 09-16-2023 ambulatory [facility] Start: 09-16-2023 End: 09-16-2023 ambulatory [facility] Start: 09-15-2023 End: 09-15-2023 Emergency department patient visit [facility] Start: 08-11-2023 End: 08-14-2023 ambulatory MEENAKSHI FIERRO [facility] Start: 07-18-2023 End: 07-19-2023 Emergency department patient visit [facility] Start: 02-16-2020 End: 02-17-2020 Emergency department patient visit [facility] Start: 02-16-2020 End: 02-16-2020 Emergency department patient visit Miguel [facility] Work Phone: [facility] ED Comment on above: Fall, initial [...] Start: 02-16-2020 Urine test visual color cmprsn madelaine Gunter Florentin Work Phone: Plan of Treatment Date Care Activity Detail Author Start: 12-11-2019 Influenza vaccination Flu vaccine (# 1) [place] Start: 2004 Screening for malign ant neoplasm of cervix Cervical cancer screen [place] Start: 2002 DTaP/Tdap/Td vaccine (1 - Tdap) DTaP/Tdap/Td vaccine (1 - Tdap) [place] Start: 1998 HIV screening HIV screen [place], [place] Start: 1989 Pneumococcal 0-64 ye ars Vaccine (1 of 1 - PPSV23) Pneumococcal 0-64 years Vaccine (1 of 1 - PPSV23) [place] Start: 1984 Varicella vaccine (1 of 2 - 2-dose childhood series) Varicella vaccine (1 of 2 - 2-dose childhood series) [place] Payers Date Payer Category Payer Unknown [id number] 1985 Unknown [id number] 2.16.8 [id number] 1985 Unknown [id number] 2.16. [id number] 1985 Unknown [id number] 2.16.8 [id number] 1985 Unknown [id number] 2.16.8 [id number] 1985 Unknown [id number] 2.16.8 [id number] 1985 Unknown [id number] 2.16.8 [id number] 1985 Unknown [id number] 2.16.8 [id number] 1985 Unknown [id number] 2.16.8 [id number] 1985 Unknown [id number] 2.16.8 [id number] 1985 Unknown [id number] 2.16.8 [id number] Social History Date Type Detail Facility Start: 02-16-2020 Tobacco smoking stat [facility] Current every day smoker [place] History of tobacco use Cigarette Smoker M [place] Start: 02-16-2020 Cigarettes smoked current (pack per day) - Reported [place] Start: 02-16-2020 Tobacco use and exposure Never used [place] Start: 02-16-2020 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) [place] Sex Assigned At Not on file [place] Exposure to SARS-CoV -2 (event) Not sure [place] Summary Purpose Family History No Family History Records FoundNo Family History Records FoundNo Family History Records FoundNo Family History Records FoundNo Family History Records Found Advance Directives No Advanced Directives Records FoundDocuments on File Type Date 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 [employer] provides no warranty or guarantee of the accuracy or completeness of information in this document.
== END 2023-11-01 11:06 | disposition home or self-care (01) ==
LOC: EC 11:05
PROVIDERS: Visit Provider Podiatrist Foot & Ankle Surgery
DX: M25.571 Pain in right ankle and joints of right foot (principal)
CPT/HCPCS: 73610

== ENCOUNTER 2023-11-15 09:22 | Outpatient (OUT) | payer OTHER, SELFPAY ==
--- NOTE | 2023-11-14 13:40 | VEINCLINIC_ITS ---
Vital Signs 11/14/23 13:41 11/15/23 09:36 Height 5 ft 4 in Weight 81 kg BP 98/56 BP Location Left Brachial BP Position Sitting BP Cuff Size Adult BP Source Manual Cuff Respiration 16 Pulse 82 Pulse Source Monitor Pulse Oximetry (%) 99 Oxygen Delivery Method Room Air Varicose Veins Patient is a 38 year old female in this day as a referral from Dr. Wright. Patient fractured her right ankle 4 months ago tripping over a rubber mat. Dr. Wright has been treating patient since August non-surgically. Patient developed a DVT to right calf (perineal vein) area on 08/21/2023. Patient was administered Eliquis. Patient has followed up with a vascular surgeon Dr. Beasley in [place], [place] whom did not change plan of care. Patient continues to be seen by Dr. Wright, yet maintains c/o right leg pain and edma to right leg. Patient has worn compression since september 16, 2023. Thigh high compression stocking. Patient has family history of varicose veins including her mother. Patient has no previous history of blood clotting disease nor any family history. Patient has not had any treatment varicose vein mejia in the past. . IFrandy MD personally performed the services described in this documentation, as scribed by Ramon Peralta RN in my presence and it is both accurate and complete. IRamon RN, am scribing for, and in the presence of, Dr. Frandy Yadav and in the presence of the patient. . thigh: bilateral (varicose vein noted bilaterally), knee: bilateral, calf: bilateral, ankle: bilateral and mcleod: bilateral aching, burning, cramping, sharp and tender 7 since DVT Worsened in recent months: Yes walking analgesics (Tylenol), elevating extremities and compression stockings Reports muscle spasms of leg, limb pain and edema History of lower extremity trauma: Yes (right ankle) Superficial thrombophlebitis: Yes (right leg) Family history of varicose veins: yes Has patient had previous lower extremity venous surgery: No Patient has previously received the following treatment(s) for lower extremity varicose veins: Reports none Does patient have a history of : yes Does patient intend to have future pregnancies: yes Has patient had lower extremity venous scan with relux testing: No Support hose used: Yes Problems walking or doing physical activity: Yes How does it affect you: can not sustain activity has to rest and elevate feet/legs Do you walk much: No Do you stand much: No Review of Systems ROS Narrative I, Frandy Yadav MD personally performed the services described in this documentation, as scribed by Ramon Peralta RN in my presence and it is both accurate and complete. I, Ramon Peralta RN, am scribing for, and in the presence of, Dr. Frandy Yadav and in the presence of the patient. Cardiovascular Reports: edema Integumentary/Breast Reports: skin tenderness, skin swelling and changes in skin color Neurological Reports: numbness in extremities and weakness in extremities PFSH [facility] Medical History (Updated 11/15/23 @ 09:59 by Ramon Peralta) delivery delivered ?O82 - Encounter for delivery without indication (ICD-10) Right ankle injury ?S99.911A - Unspecified injury of right ankle, initial encounter (ICD-10) Varicose veins of bilateral lower extremities with pain ?I83.813 - Varicose veins of bilateral lower extremities with pain (ICD-10) Surgical History (Updated 11/15/23 @ 09:59 by Ramon Peralta) H/O LEEP ?Z98.890 - Other specified postprocedural states (ICD-10) H/O laparoscopy ?Z98.890 - Other specified postprocedural states (ICD-10) Family History (Updated 11/15/23 @ 10:00 by Ramon Peralta) Mother Varicose veins of bilateral lower extremities with pain Family history of cancer Father Family history of myocardial infarction Social History (Updated 11/15/23 @ 10:00 by Ramon Peralta) Within the past year, how often did you have a drink containing alcohol: never Score interpretation: A score less than 3 is consistent with normal alcohol consumption. Smoking status: Never smoker Non-prescribed substance use: denies use Meds Home Medications and Allergies Home Medications ?Medication ?Instructions ?Recorded ?Confirmed ?Type apixaban 5 mg (74 tabs) tablets in 5 mg PO Q12H #74 ea 08/26/23 11/15/23 Rx a dose pack (Eliquis DVT-PE Treat 30D Start) Allergies Allergy/AdvReac Type Severity Reaction Status Date / Time adhesive tape AdvReac Mild Verified 08/26/23 10:41 amoxicillin [From Augmentin] AdvReac Mild Verified 08/26/23 10:41 clavulanic acid AdvReac Mild Verified 08/26/23 10:41 [From Augmentin] onion AdvReac Mild Verified 08/26/23 10:41 Exam Constitutional Documenting provider has reviewed patient's vital signs: yes Common normals: oriented x3 Cardio Peripheral pulses: dorsalis pedis pulses present Extremity Common normals: normal capillary refill General: calf tenderness and edema Right lower extremity: lower leg Right lower leg: inspection and palpation Left lower extremity: lower leg Left lower leg: inspection and palpation Neuro Common normals: oriented x3 Results Additional Findings Additional findings: Bilateral leg reflux u/s reveals no varicose vein disease noted. Frandy Oliva MD personally performed the services described in this documentation, as scribed by Ramon Peralta RN in my presence and it is both accurate and complete. Ramon Oliva RN, am scribing for, and in the presence of, Dr. Frandy Yadav and in the presence of the patient. Assessment and Plan Assessment and Plan (1) Varicose veins of bilateral lower extremities with pain: (2) Acute deep vein thrombosis (DVT) of calf muscle vein of right lower extremity: Plan Plan is for patient to continue use of bilateral leg compression stockings, rest, and elevation. No treatment necessary at this time. Patient to f/u in future as necessary. Patient to move forward with self-pay sclerotherapy in the future as she wishes. Frandy Oliva MD personally performed the services described in this documentation, as scribed by Ramon Peralta RN in my presence and it is both accurate and complete. Ramon Oliva RN, am scribing for, and in the presence of, Dr. Frandy Yadav and in the presence of the patient.
--- NOTE | 2023-11-14 13:40 | W.VEIN ---
Discharge Plan Discharge Disposition: Home, Self-Care Follow Up Appointments: no f/u necessary at this time Plan of Treatment: patient to continue use of bilateral leg compression stockings, rest, and elevation bilateral legs/feet. Self-pay sclerotherapy if patient wishes. Print Language: Tristanian Discharge Date/Time: 11/15/23 11:26
--- OUTSIDE RECORDS SUMMARY | 2023-11-15 09:26 | XMS_ITS | CCD ---
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 Worker Name Role Phone MIGUEL LANIER Attending Unavailable PRINCESS, NEO Wolf Primary Care Unavailable Princess, Neo T Primary Care Provider [phone] MEENAKSHI FIERRO Referring Unavailable PRINCESS, NEO T [...] Unavailable PASTOR, KELSEA A Primary Care Unavailable ANNMARIE, MARILU Juan Attending Unavailable ANGUIANOMARILU SHARMA Referring Unavailable ANGUIANO, MARILU N Primary Care Unavailable Allergies Allergy Classification Reported Allergen(s) Allergy Type Date of Onset Reaction(s) Facility (1 source) Adhesive Tape Propensity to adverse reactions to drug 0 Rash [place], [place] (2 sources) Amoxicillin; Translations: [AMOXICILLIN] Drug Allergy 0 Hives [place], [place] (4 sources) Azithromycin; Translations: [AZITHROMYCIN] Drug Allergy 5 Diarrhea [place], [place] (3 sources) ADHESIVE TAPE-SILICONES; Translations: [ADHESIVE [...] Avinash Rose MD 08/11/23 Final result Normal [facility] XR ANKLE RT MIN 3 VWSon XR [...] Stafford MD on 07/18/2023 1:[address] [facility] XR LUMBAR SPINE (2-3 VIEWS)o n [...] Suman Chow DO 02/16/20 Final result Normal [facility] XR PELVIS (1-2 VIEWS)on XR PELVIS [...] Suman Chow DO 02/16/20 Final result Normal [facility] HCG, ,Urineon 02-15 Beta HCG ( test) Ql (U) Negative Normal NEG [facility] Comment on above: Result Comment: Spec imens with hCG levels near the threshold of the test (25 mIU/mL) may give a negative or indeterminate result. In such cases, another test should be performed with a new specimen in 48-72 hours. If early is suspected clinically in this setting, correlation with quantitative serum b-hCG level is suggested. Performed By: #### U HCG #### [facility] [address] [place] [address] Commercial Construction Project Manager: Virgil Daniels DO , Urineon 0 Beta HCG ( test) Ql (U) Negative NEGATIVE [place], [place] Comment on above: Specimens with hCG [...] acute osseous abnormality involving the lumbar spine [facility] [place] EXAMINATION: THREE XRAY VIEWS OF THE LUMBAR [...] malalignment is present. Minimal degenerative changes present. [place], [place] Yonas, [facility] Incoming Radiant Results From [employer] - 02/16/2020 10:16 PM EST EXAMINATION: THREE [...] acute osseous abnormality involving the lumbar spine [place] XR PELVIS (1-2 VIEWS)on No acute abnormality of the pelvis. [place] EXAMINATION: ONE XRA Y VIEW OF THE PELVIS 02/16/2020 10:00 pm COMPARISON: None. HISTORY: ORDERING SYSTEM PROVIDED HISTORY: right ischial spine tenderness TECHNOLOGIST PROVIDED HISTORY: right ischial spine tenderness Reason for Exam: pain Acuity: Acute Type of Exam: Initial FINDINGS: No evidence of pelvic fracture. Bilateral hips demonstrate normal alignment. No focal osseous lesion. SI joints are symmetric. [place], [place] Yonas, [employer] Incoming Radiant Results From [employer] - 02/16/2020 10:15 PM EST EXAMINATION: ONE [...] IMPRESSION: No acute abnormality of the pelvis. [place] Vital Signs Date Time Vital Sign Value Performing Clinician Najma johnston 02-16-2020 20:16-0500 BMI (Body Mass Index) 30.55 kg/m2 [place] 02-16-2020 20:16-0500 Body weight 80.74 kg [place] 02-16-2020 20:16-0500 BP Diastolic 72 mm[Hg] [place] 02-16-2020 20:16-0500 BP Systolic 125 mm[Hg] [place] 02-16-2020 20:16-0500 Height 162.6 cm [place] 02-16-2020 20:16-0500 Pulse (Heart Rate) 89 /min [place] 02-16-2020 20:16-0500 Pulse Oximetry 99 % [facility] [place] [facility] [place] 02-16-2020 20:16-0500 Respiratory Rate 18 /min [facility] [place] [place] Encounters Encounter Date Encounter Type Care Provider Facility Start: 10-25-2023 End: 10-25-2023 ambulatory [facility] Start: 10-10-2023 End: 10-10-2023 ambulatory [facility] Start: 09-20-2023 ambulatory [facility] Start: 09-16-2023 End: 09-16-2023 ambulatory [facility] Start: 09-16-2023 End: 09-16-2023 ambulatory [facility] Start: 09-15-2023 End: 09-15-2023 Emergency department patient visit [facility] Start: 08-11-2023 End: 08-14-2023 ambulatory MEENAKSHI FIERRO [facility] Start: 07-18-2023 End: 07-19-2023 Emergency department patient visit [facility] Start: 02-16-2020 End: 02-17-2020 Emergency department patient visit [facility] Start: 02-16-2020 End: 02-16-2020 Emergency department patient visit Miguel [facility] Work Phone: [facility] ED Comment on above: [...] 12-11-2019 Influenza vaccination Flu vaccine (# 1) [place], [place] Start: 2004 Screening for malign ant neoplasm of cervix Cervical cancer screen [place], [place] Start: 2002 DTaP/Tdap/Td vaccine (1 - Tdap) DTaP/Tdap/Td vaccine (1 - Tdap) [place], [place] Start: 1998 HIV screening HIV screen [place], [place] Start: 1989 Pneumococcal 0-64 ye ars Vaccine (1 of 1 - PPSV23) Pneumococcal 0-64 years Vaccine (1 of 1 - PPSV23) [place], [place] Start: 1984 Varicella vaccine (1 of 2 - 2-dose childhood series) Varicella vaccine (1 of 2 - 2-dose childhood series) [place] Payers Date Payer Category Payer Unknown [id number] 1985 Unknown [id number] 2.16.8 [id number] 1985 Unknown [id number] 2.16. [id number] 1985 Unknown [id number] 2.16.8 [id number] 1985 Unknown [id number] 2.16.8 [id number] 1985 Unknown [id number] 2.16.8 [id number] 1985 Unknown [id number] 2.16.8 [id number] 1985 Unknown [id number] 2.16.8 [id number] 1985 Unknown [id number] 2.16.8 [id number] 1985 Unknown [id number] 2.16.8 [id number] 1985 Unknown [id number] 2.16.8 [id number] Social History Date Type Detail Facility Start: 02-16-2020 Tobacco smoking stat [facility] Current every day smoker [place], [place] History of tobacco use Cigarette Smoker M [place], [place] Start: 02-16-2020 Cigarettes smoked current (pack per day) - Reported [place] Start: 02-16-2020 Tobacco use and exposure Never used [place] Start: 02-16-2020 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 (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) [place], [place] Sex Assigned At Not on file [place] Exposure to SARS-CoV -2 (event) Not sure [place] Summary Purpose Family History No Family History Records FoundNo Family History Records FoundNo Family History Records FoundNo Family History Records FoundNo Family History Records Found Advance Directives No Advanced Directives Records FoundDocuments on File Type Date Recorded 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 ACP-Advance Directive ACP-Power of Shop Tailor Apprentice Discharge Instructions * Instructions* Nahum Lerma [...] section and content) DATE CREATED AUTHOR 02/16/2020 [facility] DATE CREATED AUTHOR AUTHOR'S ORGANIZ ATION 08/14/2023 [facility] DATE CREATED AUTHOR AUTHOR'S ORGANIZ ATION 09/17/2023 [facility] DATE CREATED AUTHOR AUTHOR'S ORGANIZ ATION 09/17/2023 [facility] DATE CREATED AUTHOR AUTHOR'S ORGANIZ ATION 10/29/2023 [facility] Reason for Visit [...] BE BASED ON THE PRIMARY CLINICAL RECORDS. [employer] provides no warranty or guarantee of the accuracy or completeness of information in this document.
--- NOTE | 2023-11-15 09:32 | VEIN_ITS ---
Patient Name: JENNIFER RUTH MR#: [id number] : 1985 Exam Date: 11/15/2023 Ordering Doctor: DR BALDO GAUTHIER M.D. RADIOLOGY REPORT PROCEDURE: FACILITY EST COMPREHENSIVE VEIN CENTER - OFFICE VISIT INITIAL COMPARISON: None. PROGRESS NOTES: [age] year old female who presents with a 4 month history of right leg pain and edema. The patient's right leg symptoms are worse than the left. There has been a progression slight improvement in symptoms since that time. The patient denies any signs and symptoms to suggest arterial ischemia. The patient describes a family history varicose veins on maternal side. The patient has drinking and smoking history of : None. Patient has a past medical history significant for recent right ankle fracture and tendon injury with subsequent development of deep vein thrombus within peroneal vein. The patient denies a history of pulmonary embolus. See separate history and physical for medication list. No prior treatment for varicose or spider veins. Current use of compression stockings. After review of nurse notes, history and physical exam I discussed at length the pathophysiology of venous hypertension and possible treatments, therapies and strategies available. We discussed at length the importance of elevating the lower extremities above the level of the heart, increased physical activity and compression stocking use. Ultrasound venous reflux study performed today was discussed at length with the patient. The report demonstrates no significant dilation or reflux within superficial veins to warrant treatment. PHYSICAL EXAM: The right leg demonstrates no varicosities, scattered spider veins, no ulceration, no significant edema, no skin discoloration. The left leg demonstrates no varicosities, scattered spider veins, no ulceration, no significant edema, no skin discoloration. Both thighs, legs and feet were symmetrically warm to the touch. Good posterior tibial and dorsalis pedis pulses were present bilaterally. VEIN/ Facility EST Comprehensive IMPRESSION: 1. No lower extremity venous insufficiency 2. No lower extremity varicose veins 3. No significant lower extremity subcutaneous edema 4. Short 4.6 cm segment of deep vein thrombus involving the right leg peroneal vein. 5. CEAP: C1, EC, , [place] PLAN: 1. Continued use of compression stockings 2. Elevated legs and increased physical activity symptomatic relief 3. No superficial veins in [place] treatment at this time. No suspicious findings to account for patient's symptoms. 4. Short segment of deep vein thrombus within right peroneal vein (this is already known and being treated with Eliquis). Nurse notes, history and physical were reviewed and confirmed, see attached forms. The nurse was present throughout the physical exam and consultation Dictated by: Baldo Gauthier M.D. on 11/15/2023 at 11:22 Approved by: Baldo Gauthier M.D. on 11/15/2023 at 11:29
--- NOTE | 2023-11-15 09:32 | VEIN_ITS ---
Patient Name: JENNIFER RUTH MR#: [id number] : 1985 Exam Date: 11/15/2023 Ordering Doctor: DR FRANDY GAUTHIER M.D. RADIOLOGY REPORT PROCEDURE: VC EXT VENOUS REFLUX CARLOS MANUEL LMTD COMPARISON: None. INDICATIONS: I83.813 - Varicose veins of bilateral lower extremities w... TECHNIQUE: Duplex imaging of the lower extremity to assess the deep and superficial venous system for the presence of deep or superficial venous incompetence and to document the location and severity of disease. The study includes evaluation of the great saphenous vein (GSV), anterior accessory saphenous vein (AASV) and small saphenous vein (SSV). Patient scanned in reverse Trendelenburg and standing. FINDINGS: RIGHT LOWER EXTREMITY: Saphenofemoral Junction Reflux: Yes 6.8mm 1.9 sec GSV: Diam (mm) Reflux/ Time (sec) Proximal Thigh 6.1 Yes 1.5 Mid Thigh 2.4 No Distal Thigh 2.6 Yes 0.5 Prox Calf 1.3 No Mid Calf 1.3 No Saphenopopliteal Junction Reflux: 2.5mm SSV: Proximal Calf 1.8 No Mid Calf 1.3 No AASV: Proximal Thigh 1.6 No Mid Thigh 1.6 No Distal Thigh Thrombi: 4.6 cm segment of chronic DVT in proximal Jose V. Compressibility: Normal Flow: Normal Preforator: Dist/med calf 2.3mm with 0s reflux. Tech Note: Incompetent GSV. Patent varicose vein 1.1mm with 1.5s reflux. LEFT LOWER EXTREMITY: Saphenofemoral Junction Reflux: Yes 5.2 mm 0.9 sec GSV: Diam (mm) Reflux/Time (sec) Proximal Thigh 4.2 Yes 0.5 Mid Thigh 1.9 No Distal Thigh 1.2 No Prox Calf 0.7 No Mid Calf 0.5 Saphenopopliteal Junction Relux: 3.3 mm No SSV: Proximal Calf 1.4 No Mid Calf 1.2 No AASV: Proximal Thigh 1.6 Yes 1.0 Mid Thigh 1.5 No Distal Thigh Thrombi: No acute or chronic thrombus visualized Compressibility: Normal Flow: Normal Ecommerce Merchandising Manager: Dist/med calf 1.3mm with 0s reflux. Tech Note: No patent varicose veins visualized. CONCLUSION: 1. No abnormally dilated or incompetent superficial veins in need of treatment. 2. Known deep vein thrombus within peroneal vein, 4.6 cm in length. Dictated by: Frandy Gauthier M.D. on 11/15/2023 at 10:38 Approved by: Frandy Gauthier M.D. on 11/15/2023 at 11:22
[2023-11-15 09:36] VITALS: BP 98/56; PULSE 82; O2SAT 99
--- NOTE | 2023-11-15 10:53 | W.VEIN ---
Discharge Plan Discharge Disposition: Home, Self-Care Follow Up Appointments: no f/u necessary at this time Plan of Treatment: patient to continue use of bilateral leg compression stockings, rest, and elevation bilateral legs/feet. Print Language: [place] Islander
== END 2023-11-15 11:26 | disposition home or self-care (01) ==
LOC: VC 09:23
PROVIDERS: Visit Provider Podiatrist Foot & Ankle Surgery
DX: I83.813 Varicose veins of bilateral lower extremities with pain (principal); I82.461 Acute embolism and thrombosis of right calf muscular vein
CPT/HCPCS: 93970; G0463

== ENCOUNTER 2024-01-17 10:40 | Outpatient (OUT) | payer OTHER, SELFPAY ==
--- NOTE | 2024-01-17 | XR_ITS ---
The [address] [address] Patient Name: JENNIFER RUTH MRN: [id number] date: 1985 Sex: F Assigned Patient Location: [facility] Current Patient Location: Accession/Order Number: [id number] Exam Date: 01/17/2024 10:52 Report Date: 01/18/2024 06:53 At the request of: DANIELLE PEREZ Procedure: XR ankle RT min 3V PROCEDURE: XR ankle RT min 3V HISTORY: RIGHT ANKLE PAIN COMPARISON: XR ankle right 11/01/2023 FINDINGS: BONES:No fracture, acute abnormality, or significant arthropathy. SOFT TISSUES:Mild soft tissue swelling surrounding the ankle. EFFUSION:None visible. OTHER: Negative. XR/XR ankle RT min 3V IMPRESSION: 1. Mild soft tissue swelling. 2. No acute bone abnormality or appreciable degenerative joint disease. Electronically authenticated by: BALDO GAUTHIER Date: 01/18/2024 06:53
--- OUTSIDE RECORDS SUMMARY | 2024-01-17 10:45 | XMS_ITS | CCD ---
Author Organization [facility] Care Team Providers Care Estate Agent Name Role Phone MIGUEL LANIER Attending Unavailable NEO BURTON Primary Care Unavailable Neo Burton Primary Care Provider [phone] MEENAKSHI FIERRO Referring Unavailable MICHEAL, NEO Wolf Primary Care Unavailable Mandeep DE PAZ Attending Unavailable PASTOR, KELSEA A. Referring Unavailable PASTOR, KELSEA A. Primary Care Unavailable ZANDRA M BRIONNA Referring Unavailable PASTOR, KELSEA A. Primary Care Unavailable PASTOR, KELSEA A Referring Unavailable PASTOR, KELSEA A Primary Care Unavailable ANGUIANO, MARILU N Attending Unavailable PASTOR, KELSEA A Referring Unavailable PASTOR, KELSEA A Primary Care Unavailable ANGUIANO, MARILU N Attending Unavailable ANGUIANO, MARILU N Referring Unavailable ANGUIANO, MARILU N Primary Care Unavailable PASTOR, KELSEA A Primary Care Unavailable DAVID, PATRICA Attending Unavailable DAVID, PATRICA Referring Unavailable PASTOR, KELSEA A Primary Care Unavailable PASTOR, KELSEA A Primary Care Unavailable GIULIANA HERMOSILLO Attending Unavailable AFRIDI, JO F Attending Unavailable AFRIDI, MOHAMMAD F Referring Unavailable ANGUIANO, MARILU N Primary Care Unavailable AFRIDI, MOHAMMAD F Attending Unavailable PASTOR, KELSEA A Referring Unavailable ANGUIANO, MARILU N Primary Care Unavailable Allergies Allergy Classification Reported Allergen(s) Allergy Type Date of Onset Reaction(s) Facility (1 source) Adhesive Tape Propensity to adverse reactions to drug 0 Rash [place], [place] (3 sources) Amoxicillin; Translations: [AMOXICILLIN] Drug Allergy 0 Hives [place], [place] (4 sources) Azithromycin; Translations: [AZITHROMYCIN] Drug Allergy 5 Diarrhea [place], [place] (3 sources) ADHESIVE TAPE-SILICONES; Translations: [ADHESIVE [...] source) Fall; Translations: [Fall, initial encounter] Other screening for suspected conditions (not mental [...] 01-04-2018 06-01-2016 Episodic Phlebitis; thrombophlebitis and thromboembolism (3 sources) Acute embolism and thrombosis of unspecified deep veins of right lower extremity; Translations: [Personal history of other venous thrombosis and embolism] Onset: 09-16-2023 Episodic Residual codes; unclassified (1 source) Pain, unspecified; Translations: [Pain, unspecified] Onset: 09-20-2023 Episodic Spondylosis; intervertebral disc disorders; other back problems (1 source) Acute low back pain; Translations: [Acute bilateral low back pain without sciatica] Episodic Unclassified (1 source) New Patient Onset: 10-10-2023 Unclassified (1 source) Ankle Injury Onset: 07-18-2023 Unclassified (1 source) Rt ankle injury Onset: 07-18-2023 Past or Other Problems Problem Classification Problem Date Documented Da te Episodic/Chronic Other connective tissue disease (1 source) Pain in right leg; Translations: [Pain in right leg] Onset: 09-15-2023 Episodic Other connective tissue disease (1 source) Pain in lower limb Onset: 09-15-2023 Episodic Sprains and strains (2 sources) Sprain of unspecified ligament of right ankle, initial encounter; Translations: [Sprain of unspecified ligament of right ankle, initial encounter] Onset: 07-18-2023 Episodic Results Test Name Value Interpretation Reference [...] Avinash Rose MD 08/11/23 Final result Normal [facility] XR ANKLE RT MIN 3 VWSon XR [...] MD on 07/18/2023 1:57 PM Normal [facility] XR LUMBAR SPINE (2-3 VIEWS)o n [...] Suman Chow DO 02/16/20 Final result Normal [facility] XR PELVIS (1-2 VIEWS)on XR PELVIS [...] Suman Chow DO 02/16/20 Final result Normal [facility] HCG, ,Urineon 02-15 Beta HCG ( test) Ql (U) Negative Normal NEG [facility] Comment on above: Result Comment: Spec [...] Performed By: #### U HCG #### [facility] [address] [place] [address] Talent Director: Virgil Daniels DO , Urineon 0 Beta HCG ( test) Ql (U) Negative NEGATIVE [facility] Comment on above: Specimens with hCG l [...] acute osseous abnormality involving the lumbar spine [facility] EXAMINATION: THREE XRAY VIEWS OF THE LUMBAR [...] malalignment is present. Minimal degenerative changes present. [facility] Yonas, Mhpn Incoming Radiant Results From [facility] - 02/16/2020 10:16 PM EST EXAMINATION: THREE [...] acute osseous abnormality involving the lumbar spine [place], [place] XR PELVIS (1-2 VIEWS)on No acute abnormality of the pelvis. [place] EXAMINATION: ONE XRA Y VIEW OF THE PELVIS 02/16/2020 10:00 pm COMPARISON: None. HISTORY: ORDERING SYSTEM PROVIDED HISTORY: right ischial spine tenderness TECHNOLOGIST PROVIDED HISTORY: right ischial spine tenderness Reason for Exam: pain Acuity: Acute Type of Exam: Initial FINDINGS: No evidence of pelvic fracture. Bilateral hips demonstrate normal alignment. No focal osseous lesion. SI joints are symmetric. [place], [place] Yonas, Mhpn Incoming Radiant Results From [facility] - 02/16/2020 10:15 PM EST EXAMINATION: ONE [...] IMPRESSION: No acute abnormality of the pelvis. [place] Vital Signs Date Time Vital Sign Value Performing Clinician Anthonyi vickie 02-16-2020 20:16-0500 BMI (Body Mass Index) 30.55 kg/m2 Miguel [place] 02-16-2020 20:16-0500 Body weight 80.74 kg Miguel [place], [place] 02-16-2020 20:16-0500 BP Diastolic 72 mm[Hg] [place], [place] 02-16-2020 20:16-0500 BP Systolic 125 mm[Hg] [place] 02-16-2020 20:16-0500 Height 162.6 cm Miguel Lanier [facility] , [place] 02-16-2020 20:16-0500 Pulse (Heart Rate) 89 /min Miguel Lanier [facility], [place] 02-16-2020 20:16-0500 Pulse Oximetry 99 % Miguel Lanier [facility] , [place] 02-16-2020 20:16-0500 Respiratory Rate 18 /min Miguel [facility], [place] Encounters Encounter Date Encounter Type Care Provider Facility Start: 01-03-2024 End: 01-03-2024 ambulatory [facility] Start: 12-28-2023 End: 12-28-2023 ambulatory [facility] Start: 10-25-2023 End: 10-25-2023 ambulatory [facility] Start: 10-10-2023 End: 10-10-2023 ambulatory [facility] Start: 09-20-2023 ambulatory [facility] Start: 09-16-2023 End: 09-16-2023 ambulatory [facility] Start: 09-16-2023 End: 09-16-2023 ambulatory [facility] Start: 09-15-2023 End: 09-15-2023 Emergency department patient visit [facility] Start: 08-11-2023 End: 08-14-2023 ambulatory MEENAKSHI FIERRO [facility] Start: 07-18-2023 End: 07-19-2023 Emergency department patient visit [facility] Start: 02-16-2020 End: 02-17-2020 Emergency department patient visit [facility] Start: 02-16-2020 End: 02-16-2020 Emergency department patient visit Miguel Humphreysramonhemalatha Work Phone: [facility] Comment on above: Fall, initial encoun ter (Primary Dx); Acute bilateral low back pain without sciatica Procedures Date Procedure Procedure Detail Performing Clinician Start: 02-17-2020 Radex spine lumbosac ral 2/3 views MIGUEL LANIER Start: 02-17-2020 Radiologic examinati on pelvis 1/2 views MIGUEL LANIER Start: 02-16-2020 Urine test visual color cmprsn jairos MIGUEL LANIER Start: 02-16-2020 Radex spine lumbosac ral 2/3 views Nahum Lerma Work Phone: Start: 02-16-2020 Radiologic examinati on pelvis 1/2 views Nahum Lerma Work Phone: Start: 02-16-2020 Urine test visual color cmprsn meths Nahum Lerma Work Phone: Plan of Treatment Date Care Activity Detail Author Start: 12-11-2019 Influenza vaccination Flu vaccine (# 1) [place], [place] Start: 2004 Screening for malign ant neoplasm of cervix Cervical cancer screen [place], [place] Start: 2002 DTaP/Tdap/Td vaccine (1 - Tdap) DTaP/Tdap/Td vaccine (1 - Tdap) [place] Start: 1998 HIV screening HIV screen [place], [place] Start: 1989 Pneumococcal 0-64 ye ars Vaccine (1 of 1 - PPSV23) Pneumococcal 0-64 years Vaccine (1 of 1 - PPSV23) [place] Start: 1984 Varicella vaccine (1 of 2 - 2-dose childhood series) Varicella vaccine (1 of 2 - 2-dose childhood series) [place] Payers Date Payer Category Payer Unknown [id number] 1985 Unknown [id number] 2.16.8 [id number] 1985 Unknown [id number] 2.16. [id number] 1985 Unknown [id number] 2.16.8 [id number] 1985 Unknown [id number] 2.16.8 [id number] 1983 Unknown [id number] 2.16.8 [id number] 1983 Unknown [id number] 2.16.8 [id number] 1983 Unknown [id number] 2.16.8 [id number] 1983 Unknown [id number] 2.16.8 [id number] 1983 Unknown [id number] 2.16.8 [id number] 1983 Unknown [id number] 2.16.8 [id number] 1985 Unknown [id number] 2.16.8 [id number] 1985 Unknown [id number] 2.16.8 [id number] Social History Date Type Detail Facility Start: 02-16-2020 Tobacco smoking stat [facility] Current every day smoker [place], [place] History of tobacco use Cigarette Smoker M [place], [place] Start: 02-16-2020 Cigarettes smoked current (pack per day) - Reported [place] Start: 02-16-2020 Tobacco use and exposure Never used [place] Start: 02-16-2020 Alcohol intake 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 non-dr [employer]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) [place], [place] Sex Assigned At Not on file [place] Exposure to SARS-CoV -2 (event) Not sure [place] Summary Purpose Family History No Family History Records FoundNo Family History Records FoundNo Family History Records FoundNo Family History Records FoundNo Family History Records Found Advance Directives No Advanced Directives Records FoundDocuments on File Type Date Recorded 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 DATE CREATED AUTHOR AUTHOR'S ORGANIZ ATION 09/17/2023 [facility] DATE CREATED AUTHOR AUTHOR'S ORGANIZ ATION 10/29/2023 [facility] DATE CREATED AUTHOR AUTHOR'S ORGANIZ ATION 01/06/2024 [facility] Reason for Visit (unrecogniz ed section [...] BE BASED ON THE PRIMARY CLINICAL RECORDS. [facility]. provides no warranty or guarantee of the accuracy or completeness of information in this document.
== END 2024-01-17 10:41 | disposition home or self-care (01) ==
LOC: RAD 10:40
PROVIDERS: Visit Provider Podiatrist Foot & Ankle Surgery
DX: S92.114D Nondisplaced fracture of neck of right talus, subsequent encounter for fracture with routine healing (principal)
CPT/HCPCS: 73610

== ENCOUNTER 2024-02-14 13:19 | Outpatient (OUT) | payer OTHER, SELFPAY ==
--- NOTE | 2024-02-14 13:32 | CT_ITS ---
[address] [address] Patient Name: JENNIFER RUTH MRN: [id number] date: 1985 Sex: F Assigned Patient Location: CT Current Patient Location: CT Accession/Order Number: [id number] Exam Date: 02/14/2024 13:35 Report Date: 02/14/2024 14:05 At the request of: DANIELLE PEREZ Procedure: CT ankle RT wo con EXAMINATION: CT ankle RT wo con HISTORY: [place]ck Fracture COMPARISON: 08/30/2023, 01/17/2024 TECHNIQUE: Multi-planar CT images were created without IV contrast. Dose reduction techniques were achieved by using automated exposure control and/or adjustment of mA and/or kV according to patient size and/or use of iterative reconstruction technique. FINDINGS: BONES: Normal alignment with no acute fracture or spondylolisthesis. No evidence of a remote fracture. There is a mildly permeative pattern of the bones SOFT TISSUES: Negative. No visible soft tissue swelling. EFFUSION: None visible. OTHER: Negative. CT/CT ankle RT wo con IMPRESSION: Evidence of a subacute or chronic fracture Electronically authenticated by: GIULIANA KWAN Date: 02/14/2024 14:05
--- OUTSIDE RECORDS SUMMARY | 2024-02-14 13:39 | XMS_ITS | CCD ---
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 Referring Unavailable PASTOR, KELSEA A. Primary Care Unavailable Mandeep DE PAZ Referring Unavailable PASTOR, KELSEA A. Primary Care Unavailable PASTOR, KELSEA A Primary Care Unavailable DAVIDNOHELIAPATRICA Attending Unavailable DAVID, PATRICA Referring Unavailable PASTOR, KELSEA A Primary Care Unavailable PASTOR, KELSEA A Primary Care Unavailable GIULIANA HERMOSILLO Attending Unavailable AFRIDI, JO F Attending Unavailable AFRIDI, MOHAMMARommel F Referring Unavailable ROJAS, CABRERA N Primary Care Unavailable AFRIDI, JO F Attending Unavailable PASTOR, KELSEA A Referring Unavailable ROJAS, CABRERA N Primary Care Unavailable Rojas Cabrera RINALDI Primary Care Provider [phone] PASTOR, KELSEA A Referring Unavailable PASTOR, KELSEA A Primary Care Unavailable ROJAS, CABRERA N Attending Unavailable PASTOR, KELSEA A Referring Unavailable PASTOR, KELSEA A Primary Care Unavailable ROJAS, CABRERA N Attending Unavailable ROJAS, CABRERA N Referring Unavailable ROJAS, CABRERA N Primary Care Unavailable ROJAS, CABRERA N Attending Unavailable ROJAS, CABRERA N Referring Unavailable ROJAS, CABRERA N Primary Care Unavailable Allergies Allergy Classification Reported Allergen(s) Allergy Type Date of Onset Reaction(s) Facility (1 source) Adhesive Tape Propensity to adverse reactions to drug 0 Rash [facility], [place] (4 sources) Amoxicillin; Translations: [AMOXICILLIN] Drug Allergy [address] [facility], [place] (4 sources) Azithromycin; Translations: [AZITHROMYCIN] Drug Allergy 5 Diarrhea [place], [place] (4 sources) ADHESIVE TAPE-SILICONES; Translations: [ADHESIVE TAPE-SILICONES] Propensity to adverse reactions to drug (disorder) 9 [facility] (4 sources) AMOXICILLIN-POT CLAVULANATE; Translations: [AMOXICILLIN-POT CLAVULANATE] Propensity to adverse reactions to drug (disorder) 1 [facility] Medications Current Medications Medication Drug Class(es) Dates Sig (Normalized) Sig (Original) acetaminophen 325 mg oral tablet (2 sources) Start: 02-16-2020 take 2 tablets by mouth every six hours as needed for pain acetaminophen (TYLENOL) 325 MG tablet Take 2 tablets by mouth every 6 hours as needed for Pain 60 tablet 0 02/16/2020 Active take 1 tablet by maite th every six hours as needed for pain acetaminophen (TYLENOL EXTRA STRENGTH) 5 00 mg tablet Take 1 tablet (500 mg total) by mouth every 6 (six) hours as needed for pain. Patient take 2 as needed Active [id number] 200 actuat albuterol 0.09 mg/actuat metered dose inhaler (3 sources) beta2-Adrenergic Agonist Start: 02-08-2024 End: 03-09-2024 take 2 puff(s) by inhalation every six hours as needed for wheezing albuterol (PROVENTIL HFA;VENTOLIN HFA) 90 mcg/actuation inhaler Indications: Community acquired pneumonia of right lower lobe of lung Inhale 2 puffs every 6 (six) hours as needed for wheezing for up to 30 days. 18 g 1 02/08/2024 03/09/2024 Active Start: 01-25-2024 End: 02-08-2024 albuterol (PROVENTIL HFA;ANJALI TOLIN HFA) 90 mcg/actuation inhaler TAKE 2 APPLICATOR (INHALATION) EVERY 4 HOURS FOR 7 DAYS 01/25/2024 02/08/2024 Discontinued (Reorder) Start: 05-20-2016 albuterol sulf ate HFA (PROAIR HFA) 108 (90 BASE) MCG/ACT inhaler Indications: Sore throat 2 PUFFS QID FOR 7 DAYS THEN PRN 1 Inhaler 0 05/20/2016 Active apixaban 5 mg oral tablet (1 source) Factor Xa Inhibitor take 2 tablets by mouth in the morning, then take 2 tablets by mouth at bedtime apixaban (ELIQUIS) 5 mg tablet Indications: deep venous thrombosis Take 2 tablets (10 mg total) by mouth in the morning and 2 tablets (10 mg total) before bedtime. Indications: blood clot in a deep vein of the extremities. Morning and night , . Active benzonatate 200 mg oral capsule (1 source) Non-narcotic Antitussive Start: take 1 capsule by mouth three times daily benzonatate (TESSALON PERLES) 200 mg capsule TAKE 1 CAPSULE BY MOUTH THREE TIMES A DAY FOR 5 DAYS 01/25/2024 Active bifidobacterium infantis 4 mg oral capsule (1 source) Start: End: take 1 capsule by mouth in the morning Bifidobacterium infantis (ALIGN) 4 mg capsule Indications: Community acquired pneumonia of right lower lobe of lung Take 1 capsule (4 mg total) by mouth in the morning for 14 days. 14 capsule 02/08/2024 02/22/2024 Active cholecalciferol 1000 unt oral capsule (1 source) Vitamin D take 1 capsule by mouth once daily vitamin D 1000 UNITS CAPS Take 1 capsule by mouth daily 0 Active doxycycline monohydrate 100 mg oral capsule (1 source) Tetracycline-class Drug Start: take 1 capsule by mouth twice daily doxycycline (MONODOX) 100 mg capsule TAKE 1 CAPSULE BY MOUTH TWICE A DAY FOR 7 DAYS 01/25/2024 Active [id number] 0.3 ml EPINEPHrine 1 mg/ml auto-injector (1 source) alpha-Adrenergic Agonist, beta-Adrenergic Agonist, Catecholamine Start: EPINEPHrine (EPIPEN) 0.3 mg/0.3 mL auto-injector Inject 0.3 mL (0.3 mg total) into the appropriate muscle as needed (anaphylaxis) for up to 1 dose. 2 each 11/25/2020 Active famotidine 20 mg oral tablet (1 source) Histamine-2 Receptor Antagonist Start: take 1 tablet by mouth twice daily famotidine (PEPCID) 20 mg tablet Take 1 tablet (20 mg total) by mouth 2 (two) times a day. 20 tablet 11/25/2020 Active fluconazole 150 mg oral tablet (2 sources) Azole Antifungal Start: End: fluconazole (DIFLUCAN) 150 mg tablet Indications: Community acquired pneumonia of right lower lobe of lung Take 1 pill once, repeat in 3 days prn 1 tablet 1 02/08/2024 02/08/2024 Active take 1 tablet by mouth once steffi y fluconazole (DIFLUCAN) 100 MG tablet Take 100 mg by mouth daily 0 Active ibuprofen 800 mg oral tablet (3 sources) Nonsteroidal Anti-inflammatory Drug Start: 07-18-2023 take 1 tablet by mouth three times daily ibuprofen (MOTRIN) 800 mg tablet Take 1 tablet (800 mg total) by mouth 3 (three) times a day. 21 tablet 07/18/2023 Active Start: 02-16-2020 take 2 tablets by mo [facility] every six hours as needed for pain ibuprofen (ADVIL;MOTRIN) 200 MG tablet Take 2 tablets by mouth every 6 hours as needed for Pain or Fever 60 tablet 0 02/16/2020 Active Start: 05-20-2016 take 1 tablet by maite every eight hours as needed for pain [...] Classification Problem Date Documented Da te Episodic/Chronic Cardiac dysrhythmias (1 source) Irregular heart beat; Translations: [Cardiac arrhythmia, unspecified] Onset: 09-21-2018 09-21-2018 Chronic External cause codes: Fall (1 source) Fall; Translations: [Fall, initial encounter] Phlebitis; thrombophlebitis and thromboembolism (3 sources) Acute embolism and thrombosis of unspecified deep veins of right lower extremity; Translations: [Personal history of other venous thrombosis and embolism] Onset: 09-16-2023 Episodic Pneumonia (except that caused by tuberculosis or sexually transmitted disease) (2 sources) Community acquired pneumonia; Translations: [Pneumonia, unspecified organism] Onset: 02-08-2024 02-08-2024 Episodic Spondylosis; intervertebral disc disorders; other back problems (1 source) Acute low back pain; Translations: [Acute bilateral low back pain without sciatica] Episodic Unclassified (1 source) Ankle Injury Onset: 07-18-2023 Unclassified (1 source) Rt ankle injury Onset: 07-18-2023 Unclassified (1 source) Illness Onset: 02-08-2024 Unclassified (1 source) New Patient Onset: 10-10-2023 Past or Other Problems Problem Classification Problem Date Documented Da te Episodic/Chronic Cardiac dysrhythmias (1 source) Palpitations; Translations: [Palpitations] Onset: 09-21-2018 09-21-2018 Episodic Other connective tissue disease (1 source) Pain in right leg; Translations: [Pain in right leg] Onset: 09-15-2023 Episodic Other connective tissue disease (1 source) Pain in lower limb Onset: 09-15-2023 Episodic Other lower respiratory disease (1 source) Dyspnea on exertion; Translations: [Other forms of dyspnea] Onset: 09-21-2018 09-21-2018 Episodic Other screening for suspected conditions (not [...] symptom] Onset: 05-20-2016 Resolved: 01-04-2018 06-01-2016 Episodic Residual codes; unclassified (1 source) Pain, unspecified; Translations: [Pain, unspecified] Onset: 09-20-2023 Episodic Sprains and strains (2 sources) Sprain [...] Avinash Rose MD 08/11/23 Final result Normal [facility] XR ANKLE RT MIN 3 [...] Stafford MD on 07/18/2023 1:57 PM Normal [facility] XR LUMBAR SPINE (2-3 VIEWS)o n [...] Suman Chow DO 02/16/20 Final result Normal [facility] XR PELVIS (1-2 VIEWS)on XR PELVIS (1-2 [...] Suman Chow DO 02/16/20 Final result Normal [facility] HCG, ,Urineon 02-15 Beta HCG ( test) Ql (U) Negative Normal NEG [facility] Comment on above: Result Comment: Spec imens with hCG levels near the threshold of the test (25 mIU/mL) may give a negative or indeterminate result. In such cases, another test should be performed with a new specimen in 48-72 hours. If early is suspected clinically in this setting, correlation with quantitative serum b-hCG level is suggested. Performed By: #### U HCG #### [facility] [address] [place] [address] Rack Worker: Virgil Daniels DO , Urineon 0 Beta HCG ( test) Ql (U) Negative NEGATIVE [facility] [employer] Comment on above: Specimens with hCG l [...] acute osseous abnormality involving the lumbar spine [facility]: THREE XRAY VIEWS OF THE LUMBAR [...] malalignment is present. Minimal degenerative changes present. [employer] Yonas, [employer] Incoming Radiant Results From [employer] - 02/16/2020 10:16 PM EST EXAMINATION: THREE [...] acute osseous abnormality involving the lumbar spine [facility] XR PELVIS (1-2 VIEWS)on No acute abnormality of the pelvis. [facility] EXAMINATION: ONE XRA Y VIEW OF THE PELVIS 02/16/2020 10:00 pm COMPARISON: None. HISTORY: ORDERING SYSTEM PROVIDED HISTORY: right ischial spine tenderness TECHNOLOGIST PROVIDED HISTORY: right ischial spine tenderness Reason for Exam: pain Acuity: Acute Type of Exam: Initial FINDINGS: No evidence of pelvic fracture. Bilateral hips demonstrate normal alignment. No focal osseous lesion. SI joints are symmetric. [employer] Yonas, [facility] Incoming Radiant Results From [employer] - 02/16/2020 10:15 PM EST EXAMINATION: ONE [...] IMPRESSION: No acute abnormality of the pelvis. [employer] Vital Signs Date Time Vital Sign Value Performing Clinician Najma johnston 02-08-2024 10:37-0400 Body height 162.6 cm Cabrera Rojas PA-C Work Phone: [employer] 02-08-2024 10:37-0400 Body mass index (BMI) [Ratio] 28.15 kg/m2 Cabrera Rojas PA-C Work Phone: [employer] 02-08-2024 10:37-0400 Body temperature 98.2 [degF] Cabrera Rojas PA-C [facility] 02-08-2024 10:37-0400 Body weight 74.39 kg Cabrera Rojas PA-C Work Phone: [facility] 02-08-2024 10:37-0400 Diastolic blood pressure 76 mm[Hg] Cabrera Rojas PA-C Work Phone: [facility] 02-08-2024 10:37-0400 Heart rate 81 /min Cabrera Rojas PA-C Work Phone[facility] [employer] 02-08-2024 10:37-0400 SaO2% (BldA) [Mass fraction] 97 % Cabrera Rojas PA-C Work Phone: [facility] 02-08-2024 10:37-0400 Systolic blood pressure 120 mm[Hg] Cabrera Rojas PA-C Work Phone: [facility] [employer] [facility] 02-16-2020 20:16-0500 BMI (Body Mass Index) 30.55 kg/m2 [facility], [place] 02-16-2020 20:16-0500 Body weight 80.74 kg [place], [place] 02-16-2020 20:16-0500 BP Diastolic 72 mm[Hg] [place] 02-16-2020 20:16-0500 BP Systolic 125 mm[Hg] [place] 02-16-2020 20:16-0500 Height 162.6 cm [place] 02-16-2020 20:16-0500 Pulse (Heart Rate) 89 /min [place], [place] 02-16-2020 20:16-0500 Pulse Oximetry 99 % [place] 02-16-2020 20:16-0500 Respiratory Rate 18 /min [facility], [place] Encounters Encounter Date Encounter Type Care Provider Facility Start: 02-08-2024 End: 02-08-2024 ambulatory [facility] Start: 02-08-2024 End: 02-08-2024 Office outpatient visit 15 minutes Cabrera Rojas PA-C Work Phone: [facility]/Darwin Houser MD Comment on above: Community acquired p neumonia of right lower lobe of lung (Primary Dx) Start: 01-03-2024 End: 01-03-2024 ambulatory [facility] Start: 12-28-2023 End: 12-28-2023 ambulatory [facility] Start: 10-25-2023 End: 10-25-2023 ambulatory [facility] Start: 10-10-2023 End: 10-10-2023 ambulatory [facility] Start: 09-20-2023 ambulatory [facility] Start: 09-16-2023 End: 09-16-2023 ambulatory [facility] Start: 09-16-2023 End: 09-16-2023 ambulatory [facility] Start: 09-15-2023 End: 09-15-2023 Emergency department patient visit [facility] Start: 08-11-2023 End: 08-14-2023 ambulatory MEENAKSHI FIERRO [facility] Start: 07-18-2023 End: 07-19-2023 Emergency department patient visit [facility] Start: 02-16-2020 End: 02-17-2020 Emergency department patient visit [facility] Start: 02-16-2020 End: 02-16-2020 Emergency department patient visit Miguel aLnier Work Phone: [facility] Comment on above: Fall, initial encoun ter (Primary Dx); Acute bilateral low back pain without sciatica Procedures Date Procedure Procedure Detail Performing Clinician Start: 01-10-2022 H/O: surgery History of loo p electrical excision procedure (LEEP) Cabrera Rojas PA-C Work Phone: Start: 12-02-2021 Microscopic observat ion [Identifier] in Cervix by Cyto stain Cabrera Rojas PA-C Work Phone: Start: 02-17-2020 Radex spine lumbosac ral 2/3 [...] Treatment Date Care Activity Detail Author Start: 07-02-2025 Tobacco Counseling Tobacco Counseling [facility] Start: 02-07-2025 Adult BMI Screening Adult BMI Screening [facility] Start: 02-07-2025 Tobacco Screening Tobacco Screening [facility] Start: 12-02-2024 Screening for malignant neoplasm of cervix Pap Smear [facility] Start: 02-15-2024 End: 02-15-2024 Patient encounter procedure 02/15/2024 1:30 PM EST Office Visit [facility]/Darwin Houser MD [address] [place] [address] [phone] Cabrera Rojas PA-C [address] [place] [address] [facility]/Darwin Houser MD Start: 12-11-2023 Influenza vaccination Influenza Vaccine [facility] Start: 12-11-2019 Influenza vaccination Flu vaccine (#1) [place], [place] Start: 2004 Screening for malignant neoplasm of cervix Cervical cancer screen [place], [place] Start: 2002 DTaP,Tdap and Td Vaccines (1 - Tdap) DTaP,Tdap and Td Vaccines (1 - Tdap) [facility] Start: 2002 DTaP/Tdap/Td vaccine (1 - Tdap) DTaP/Tdap/Td vaccine (1 - Tdap) [place] Start: 2001 Adult BMI Follow Up Plan Adult BMI Follow Up Plan [facility] Start: 1998 HIV screening HIV screen [place], [place] Start: 1995 Depression Screening Depression Screening [facility] Start: 1989 Pneumococcal 0-64 years Vaccine (1 of 1 - PPSV23) Pneumococcal 0-64 years Vaccine (1 of 1 - PPSV23) [place] Start: 1984 Varicella vaccine (1 of 2 - 2-dose childhood series) Varicella vaccine (1 of 2 - 2-dose childhood series) [place] Immunizations Immunization Date Immunization Notes Care Provider [facility] 02-11-2014 influenza, seasonal, injectable Cabrera Rojas PA-C Work Phone: [facility] 02-11-2014 influenza virus vaccine, unspecified formulation Cabrera Rojas PA-C Work Phone: [facility] Payers Date Payer Category Payer Commercial Managed C are - [employer] [id number] 2016 Unknown [id number] 1983 Unknown [id number] 176 1983 Unknown [id number] [id number]. 175 1983 Unknown [id number] [id number]. 1286 1983 Unknown [id number] [id number]. 1286 1983 Unknown [id number] [id number]. 1286 1983 Unknown [id number] [id number]. 1286 1983 Unknown [id number] [id number]. 1286 1983 Unknown [id number] [id number]. 1286 1983 Unknown [id number] [id number]. 1286 1983 Unknown [id number] [id number]. 1286 1983 Unknown [id number] [id number]. 1286 1983 Unknown [id number] [id number]. 1286 1983 Unknown [id number]. 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) [place] Sex Assigned At Not on file [place] Exposure to SARS-CoV -2 (event) Not sure [place] Start: 01-10-2022 Tobacco smoking stat [facility] Occasional tobacco smoker [facility] Start: 02-08-2024 Alcoholic beverage intake Lifetime non-drinker (finding) [facility] Start: 05-21-2020 End: 02-08-2024 Tobacco use panel [facility] How hard is it for y ou to pay for the very basics like food, housing, medical care, and heating Not hard at all [facility] Start: 1985 Sex assigned at Female P [facility] Start: 11-12-2014 Sex Female (finding) [facility] Start: 09-16-2018 Gender identity Identifies as female gender (finding) [facility] Start: 09-16-2018 Sexual orientation Heterosexual (fin ding) [facility] History of Present illness Narrative 02-08-2024 Cabrera Rojas PA-C - 02/08/2024 10:30 AM EDT Note Date & Type Note Facility 02-08-2024 History of Present illness Narrative Subjective Patient ID: Denisha Vera is a 38 y.o. female. Chief Complaint Chief Complaint Patient presents with Illness Oct 12 sore throat, body aches, went to 01/21 got z-brandon, chest tightness, 01/25 back to , still having issues breathing/cough HPI HPI 01/21--Z-brandon 01/2524-[id number]-Mhdhbpo, chest congestion, mild winded. No cxr, still lungs clear. Gave her doxy to started if not better in 5 days. 02/02- Winded, noproductive cough, never had fever. + chills, + body aches. Started doxycyline 100mg bid x 7 days. Prednisone, Mucinex, Albuterol. Not taking probiotics. Feels a bit of vaginal irritation/discomfort. Would like diflucan. Day #5 of doxy. Feeling much better. No longer winded. Mild heavy sensation right lower lung. Energy back. Past Medical History Past Medical History: Diagnosis Date MVP (mitral valve prolapse) Past Surgical History Past Surgical History: Procedure Laterality Date CERVICAL BIOPSY W/ LOOP ELECTRODE EXCISION 2004 SECTION 2015 LAPAROSCOPY 01/2001 Family History Family History Problem Relation Age of Onset Hyperlipidemia Mother Heart attack Father Heart disease Father Lung cancer Maternal Grandmother Hyperlipidemia Paternal Grandmother Social History Social History Socioeconomic History Marital status: Spouse name: Not on file Number of children: Not on file Years of education: Not on file Highest education level: Not on file Occupational History Not on file Tobacco Use Smoking status: Some Days Smokeless tobacco: Never Substance and Sexual Activity Alcohol use: Never Drug use: Never Sexual activity: Yes Partners: Male Other Topics Concern Caffeine Use Yes Social History Narrative Not on file Social Drivers of Health Financial Resource Strain: Low Risk (10/10/2023) Overall Financial Resource Strain (CARDIA) Difficulty of Paying Living Expenses: Not hard at all Food Insecurity: No Food Insecurity (01/03/2024) Hunger Screening Food Insecurity - Worry: Never True Food Insecurity - Inability: Never True Transportation Needs: No Transportation Needs (10/10/2023) PRAPARE - Transportation Lack of Transportation (Medical): No Lack of Transportation (Non-Medical): No Physical Activity: Not on file Stress: Not on file Social Connections: Not on file Interpersonal Safety: Not on file Housing Instability: Low Risk (10/10/2023) Housing Instability Housing Instability: No Allergies Allergies Allergen Reactions Adhesive Tape-Silicones Other reaction(s): RASH AND BLISTERS Amoxicillin Hives Day #7 hives/rash Augmentin [Amoxicillin-Pot Clavulanate] Current Medications Current Outpatient Medications Medication Sig Dispense Refill acetaminophen (TYLENOL EXTRA STRENGTH) 500 mg tablet Take 1 tablet (500 mg total) by mouth every 6 (six) hours as needed for pain. Patient take 2 as needed apixaban (ELIQUIS) 5 mg tablet Take 2 tablets (10 mg total) by mouth in the morning and 2 tablets (10 mg total) before bedtime. Indications: blood clot in a deep vein of the extremities. Morning and night , . benzonatate (TESSALON PERLES) 200 mg capsule TAKE 1 CAPSULE BY MOUTH THREE TIMES A DAY FOR 5 DAYS doxycycline (MONODOX) 100 mg capsule TAKE 1 CAPSULE BY MOUTH TWICE A DAY FOR 7 DAYS EPINEPHrine (EPIPEN) 0.3 mg/0.3 mL auto-injector Inject 0.3 mL (0.3 mg total) into the appropriate muscle as needed (anaphylaxis) for up to 1 dose. 2 each 0 famotidine (PEPCID) 20 mg tablet Take 1 tablet (20 mg total) by mouth 2 (two) times a day. 20 tablet 0 ibuprofen (MOTRIN) 800 mg tablet Take 1 tablet (800 mg total) by mouth 3 (three) times a day. 21 tablet 0 albuterol (PROVENTIL HFA;VENTOLIN HFA) 90 mcg/actuation inhaler Inhale 2 puffs every 6 (six) hours as needed for wheezing for up to 30 days. 18 g 1 Bifidobacterium infantis (ALIGN) 4 mg capsule Take 1 capsule (4 mg total) by mouth in the morning for 14 days. 14 capsule 0 fluconazole (DIFLUCAN) 150 mg tablet Take 1 pill once, repeat in 3 days prn 1 tablet 1 No current facility-administered medications for this visit. Review of Systems Review of Systems Constitutional: Negative for appetite change, fatigue and fever. HENT: Negative for congestion, ear pain, nosebleeds, postnasal drip, sinus pressure and sore throat. Respiratory: Positive for cough. Negative for shortness of breath and wheezing. Cardiovascular: Negative for chest pain and leg swelling. Gastrointestinal: Negative for abdominal pain, diarrhea, nausea and vomiting. Genitourinary: Negative for dysuria and flank pain. Musculoskeletal: Positive for gait problem (wearing splint RLE). Negative for back pain and neck pain. Skin: Negative for rash and wound. Neurological: Negative for dizziness, weakness, numbness and headaches. Psychiatric/Behavioral: Negative for confusion and sleep disturbance. The patient is not nervous/anxious. Objective Vitals BP 120/76 Pulse 81 Temp 36.8 C (98.2 F) Ht 162.6 cm (5' 4 ) Wt 74.4 kg (164 lb) SpO2 97% BMI 28.15 kg/m Physical Exam Physical Exam Vitals and nursing note reviewed. Constitutional: General: She is not in acute distress. Appearance: She is well-developed. HENT: Head: Normocephalic and atraumatic. Right Ear: Tympanic membrane and ear canal normal. Left Ear: Tympanic membrane and ear canal normal. Nose: Nose normal. Right Turbinates: Not swollen. Left Turbinates: Not swollen. Mouth/Throat: Lips: [place]. Mouth: Mucous membranes are moist. Tongue: No lesions. Palate: No mass. Pharynx: Oropharynx is clear. Uvula midline. Tonsils: No tonsillar exudate. Eyes: Conjunctiva/sclera: Conjunctivae normal. Pupils: Pupils are equal, round, and reactive to light. Neck: Thyroid: No thyroid mass or thyromegaly. Cardiovascular: Rate and Rhythm: Regular rhythm. Heart sounds: Normal heart sounds, S1 normal and S2 normal. No murmur heard. Pulmonary: Effort: Pulmonary effort is normal. No respiratory distress. Breath sounds: Examination of the right-lower field reveals rales. Rales present. No decreased breath sounds, wheezing or rhonchi. Abdominal: Palpations: Abdomen is soft. Tenderness: There is no abdominal tenderness. Musculoskeletal: Cervical back: Full passive range of motion without pain and normal range of motion. Right ankle: Decreased range of motion (immobilized in a brace (not boot)). Anterior drawer test negative. Normal pulse. Lymphadenopathy: Cervical: No cervical adenopathy. Skin: General: Skin is warm and dry. Findings: No ecchymosis or rash. Nails: There is no clubbing. Neurological: Mental Status: She is alert and oriented to person, place, and time. Cranial Nerves: No cranial nerve deficit. Sensory: No sensory deficit. Motor: No tremor. Coordination: Coordination normal. Gait: Gait normal. Psychiatric: Speech: Speech normal. Behavior: Behavior is cooperative. Judgment: Judgment normal. Recent Pertinent Labs and Radiology Assessment/Plan 1. Community acquired pneumonia of right lower lobe of lung - Bifidobacterium infantis (ALIGN) 4 mg capsule; Take 1 capsule (4 mg total) by mouth in the morning for 14 days. Dispense: 14 capsule; Refill: 0 - fluconazole (DIFLUCAN) 150 mg tablet; Take 1 pill once, repeat in 3 days prn Dispense: 1 tablet; Refill: 1 - albuterol (PROVENTIL HFA;VENTOLIN HFA) 90 mcg/actuation inhaler; Inhale 2 puffs every 6 (six) hours as needed for wheezing for up to 30 days. Dispense: 18 g; Refill: 1 Medications Discontinued During This Encounter Medication Reason albuterol (PROVENTIL HFA;VENTOLIN HFA) 90 mcg/actuation inhaler Reorder Patient Instructions Complete doxycyline 100mg BID x 7 days. Begin Probiotics once daily Begin Diflucan 150mg once, repeat in 3 days. Discussed having a cxr pros/cons. Will hold off. If s/s return will send her cxr. Cabrera Rojas PA-C 02/08/24 1134 documented in this encounter [facility] Instructions 02-08-2024 Patient Instructions Note Date & Type Note Facility 02-08-2024 Instructions Cabrera Rojas PA-C - 02/08/2024 10:30 AM EDT Complete doxycyline 100mg BID x 7 days. Begin Probiotics once daily Begin Diflucan 150mg once, repeat in 3 days. Discussed having a cxr pros/cons. Will hold off. If s/s return will send her cxr. 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 * Instructions* Nahum Lerma MD [...] section and content) DATE CREATED AUTHOR 02/16/2020 [facility] DATE CREATED AUTHOR AUTHOR'S ORGANIZ ATION 08/14/2023 [facility] DATE CREATED AUTHOR AUTHOR'S ORGANIZ ATION 09/17/2023 [facility] DATE CREATED AUTHOR AUTHOR'S ORGANIZ ATION 01/06/2024 [facility] DATE CREATED AUTHOR AUTHOR'S ORGANIZ ATION 02/10/2024 [facility] Reason for Visit (unrecogniz ed section and content) Reason Comments Fall Back Pain Hip Pain Reason Comments Illness Jan 20 sore throat, body aches, went to 01/21 got [facility], chest tightness, 01/25 back to , still having issues breathing/cough Care Teams (unrecognized sec tion and content) 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 [facility] [employer] [facility]. provides no warranty or guarantee of the accuracy or completeness of information in this document.
== END 2024-02-14 13:20 | disposition home or self-care (01) ==
LOC: CT 13:19
PROVIDERS: Visit Provider Podiatrist Foot & Ankle Surgery
DX: S92.114D Nondisplaced fracture of neck of right talus, subsequent encounter for fracture with routine healing (principal)
CPT/HCPCS: 73700

== ENCOUNTER 2024-02-20 07:49 | Outpatient (OUT) | payer OTHER, SELFPAY ==
--- NOTE | 2024-02-20 07:53 | MR_ITS ---
The [address] [address] Patient Name: JENNIFER RUTH MRN: [id number] date: 1985 Sex: F Assigned Patient Location: MRI Current Patient Location: Accession/Order Number: [id number] Exam Date: 02/20/2024 08:00 Report Date: 02/21/2024 11:01 At the request of: DANIELLE PEREZ Procedure: MR ankle RT wo con EXAM: MR ankle RT wo con REASON FOR EXAM: Talus Fracture. TECHNIQUE: Multiplanar, multisequence imaging of the right ankle was performed without contrast COMPARISON: CT scan 02/14/2024. FINDINGS: There appears to be mild thickening and intermediate signal the Achilles tendon, consistent with tendinosis. Tiny Achilles enthesophytes are noted. No tear. Trace amount of fluid is present in the retrocalcaneal bursa. The plantar fascia appears intact. Laterally, mild thickening and intermediate signal of the peroneal tendons is consistent with tendinosis. A definite tear is not evident. The superficial peroneal retinaculum is intact. Thickening and intermediate signal the anterior talofibular and calcaneofibular ligaments is consistent with prior lateral ligamentous injury. No evidence of acute ligamentous injury. Medially, the medial flexor tendons demonstrate normal thickness and signal without tendinosis or tear. Mild posterior tibial tenosynovitis. The deep deltoid ligament appears intact. The spring ligament is intact. The partially imaged Lisfranc ligament appears intact. Anteriorly, the anterior extensor tendons demonstrate normal thickness and signal without tendinosis or tear. The bone marrow signal is without acute fracture. The talar dome is congruent. The subtalar joints intact. The sinus tarsi is nonedematous. The midfoot appears congruent. The plantar musculature demonstrates normal bulk and signal. Remaining soft tissues are unremarkable. MR/MR ankle RT wo con IMPRESSION: 1. No acute or subacute osseous abnormality identified. 2. Sequela of prior lateral ligamentous injury. No evidence of acute ligamentous injury. 3. 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 Electronically authenticated by: ADOLFO MILLS Date: 02/21/2024 11:01
--- OUTSIDE RECORDS SUMMARY | 2024-02-20 07:59 | XMS_ITS | CCD ---
Author Organization [facility] Care Team Providers Care Transportation Security Officer Name Role Phone MIGUEL LANIER Attending Unavailable NEO SÁNCHEZ Primary Care Unavailable Neo Sánchez Primary Care Provider [phone] MEENAKSHI FIERRO Referring Unavailable NEO SÁNCHEZ Primary Care Unavailable Mandeep DE PAZ Attending Unavailable PASTOR, KELSEA A. Referring Unavailable PASTOR, KELSEA A. Primary Care Unavailable Mandeep DE PAZQ Referring Unavailable PASTOR, KELSEA A. Primary Care Unavailable Rojas Cabrera RINALDI Primary Care Provider PASTOR, KELSEA A Referring Unavailable PASTOR, KELSEA A Primary Care Unavailable ROJASCABRERA Attending Unavailable PASTRO, KELSEA A Referring Unavailable PASTOR, KELSEA A Primary Care Unavailable ROJASCABRERA Attending Unavailable ROJAS, CABRERA N Referring Unavailable ROJAS, CABRERA N Primary Care Unavailable ROJAS, CABRERA N Attending Unavailable ROJASCABRERA N Referring Unavailable ROJAS, CABRERA N Primary Care Unavailable PASTOR, KELSEA A. Primary Care Unavailable DAVID, PATRICA Attending Unavailable DAVID, PATRICA Referring Unavailable PASTOR, KELSEA A. Primary Care Unavailable PASTOR, KELSEA A. Primary Care Unavailable GIULIANA HERMOSILLO Attending Unavailable AFRIDI, BEBAAMMARommel F Attending Unavailable AFRIDI, MOHAMMAD F Referring Unavailable ROJAS, CABRERA N Primary Care Unavailable AFRIDI, MOHAMMARommel F Attending Unavailable PASTOR, KELSEA A. Referring Unavailable ROJAS, CABRERA N Primary Care Unavailable ROJAS, CABRERA N Referring Unavailable ROJAS, CABRERA Martinez Primary Care Unavailable Allergies Allergy Classification Reported Allergen(s) Allergy Type Date of Onset Reaction(s) Facility (1 source) Adhesive Tape Propensity to adverse reactions to drug 0 Rash [place], [place] (4 sources) Amoxicillin; Translations: [AMOXICILLIN] Drug Allergy 0 Hives [place] (4 sources) Azithromycin; Translations: [AZITHROMYCIN] Drug Allergy 5 Diarrhea [place] (4 sources) ADHESIVE TAPE-SILICONES; Translations: [ADHESIVE [...] pain. Patient take 2 as needed Active [id number] 200 actuat albuterol 0.09 mg/actuat metered dose [...] A DAY FOR 7 DAYS 01/25/2024 Active [id number] 0.3 ml EPINEPHrine 1 mg/ml auto-injector (1 [...] Start: 02-16-2020 take 2 tablets by mo uth every six hours as needed for pain [...] conditions (not mental disorders or infectious disease) (2 sources) Encounter for screening mammogram for malignant neoplasm of breast; Translations: [Encounter for screening for lipoid disorders] Onset: 10-10-2023 Episodic Phlebitis; thrombophlebitis and thromboembolism (3 sources) [...] pain without sciatica] Episodic Unclassified (1 source) Illness Onset: 02-08-2024 Unclassified [...] of dyspnea] Onset: 09-21-2018 09-21-2018 Episodic Other upper respiratory disease (1 source) [...] Name Value Interpretation Reference Range Facil ity CBC AND AUTO DIFFon 02-17-20 ABSOLUTE BASOPHIL 0.1 X10E9/L Normal 0.0-0.2 [facility] Comment on above: Performed By: #### C BCA, CMP, 50888-3 #### [facility] ([id number]) [address], [address] [place] [address] ABSOLUTE NEUTROPHIL 4.5 X10E9/L Normal 1.5-6.6 [facility] Comment on above: Performed By: #### C LEONIDAS, CMP, 77015-9 #### [facility] ([id number]) [address], [address] [place] [address] Basophils/100 WBC (Bld) 0.9 % Normal [facility] Comment on above: Performed By: #### Drew LAUREN, CMP, 11053-6 #### [facility] ([id number]) [address], [address] [place] [address] Eosinophils (Bld) [#/Vol] 0.1 10*3/uL Normal 0.0-0.4 [facility] Comment on above: Performed By: #### Drew LAUREN, CMP, 01134-5 #### [facility] ([id number]) [address] [place] [address] Eosinophils/100 WBC (Bld) 1.9 % Normal [facility] Comment on above: Performed By: #### Drew LAUREN, CMP, 61929-7 #### [facility] ([id number]) [address], [address] [place] [address] Erythrocyte distribution width (RBC) [Ratio] 13.4 % Normal 11.5-15.0 [facility] Comment on above: Performed By: #### Drew LAUREN, CMP, 44041-3 #### [facility] ([id number]) [address], [address] [place] [address] Hematocrit (Bld) [Volume fraction] 43.2 % Normal 35-47 [facility] Comment on above: Performed By: #### Drew BCA, CMP, 58428-0 #### [facility] ([id number]) [address], [address] [place] [address] Hemoglobin (Bld) [Mass/Vol] 14.6 g/dL Normal 11.7-15.5 [facility] Comment on above: Performed By: #### Drew LAUREN CMP, 45969-5 #### [facility] ([id number]) [address], [facility] [address] [place] [address] Lymphocytes (Bld) [#/Vol] 1.8 10*3/uL Normal 1.0-3.5 [facility] Comment on above: Performed By: #### Drew LAUREN CMP, 97379-8 #### [facility] ([id number]) [address], [facility] [address] [place] [address] Lymphocytes/100 WBC (Bld) 25.4 % Normal [facility] Comment on above: Performed By: #### Drew LAUREN CMP, 02492-7 #### [facility] ([id number]) [address], [facility] [address] [place] [address] MCH (RBC) [Entitic mass] 31.4 pg Normal 27-34 [facility] Comment on above: Performed By: #### Drew LAUREN CMP, 91725-6 #### [facility] ([id number]) [address], [facility] [address] [place] [address] MCHC (RBC) [Mass/Vol] 33.9 g/dL Normal 32-36 [facility] Comment on above: Performed By: #### Drew LAUREN CMP, 27914-5 #### [facility] ([id number]) [address] [address] [place] [address] MCV (RBC) [Entitic vol] 93 fL Normal 80-100 [facility] Comment on above: Performed By: #### Drew LAUREN CMP, 03919-3 #### [facility] ([id number]) [address] [address] [place] [address] Monocytes (Bld) [#/Vol] 0.6 10*3/uL Normal 0-0.9 [facility] Comment on above: Performed By: #### C LEONIDAS CMP, 70677-9 #### [facility] ([id number]) [address], [address] [place] [address] Monocytes/100 WBC (Bld) 8.0 % Normal [facility] Comment on above: Performed By: #### Drew LAUREN CMP, 75707-9 #### [facility] ([id number]) [address] [place] [address] Neutrophils/100 WBC (Bld) 63.8 % Normal [facility] Comment on above: Performed By: #### Drew LAUREN, CMP, 08302-3 #### [facility] ([id number]) [address], [address] [place] [address] Platelet mean volume (Bld) [Entitic vol] 9.3 fL Normal 7-12 [facility] Comment on above: Performed By: #### Drew LAUREN, CMP, 22862-8 #### [facility] ([id number]) [address], [address] [place] [address] Platelets (Bld) [#/Vol] 258 10*3/uL Normal 150-450 [facility] Comment on above: Performed By: #### Drew LAUREN CMP, 83400-0 #### [facility] ([id number]) [address] [place] [address] RBC COUNT 4.65 X10E12/L Normal 3.80-5.20 [facility] Comment on above: Performed By: #### Drew LARUEN, CMP, 78692-9 #### [facility] ([id number]) [address] [address] [place] [address] WBC (Bld) [#/Vol] 7.1 10*3/uL Normal 4.0-11.0 [facility] Comment on above: Performed By: #### C BCA, CMP, 72993-9 #### [facility] ([id number]) [address], [address] [place] [address] COMPREHENSIVE METABOLIC PANE Reed 02-17-2024 Albumin [Mass/Vol] 4.3 g/dL Normal 3.2-5.3 [facility] Comment on above: Performed By: #### C BCA, CMP, 16179-4 #### [facility] ([id number]) [address], [address] [place] [address] ALP [Catalytic activity/Vol] 42 U/L Normal 39-130 [facility] Comment on above: Performed By: #### C BCA, CMP, 55067-2 #### [facility] ([id number]) [address], [address] [place] [address] ALT [Catalytic activity/Vol] 10 U/L Normal 0-31 [facility] Comment on above: Performed By: #### C BCA, CMP, 21402-2 #### [facility] ([id number]) [address], [address] [place] [address] Anion gap [Moles/Vol] 10 mmol/L Normal 5-15 [facility] Comment on above: Performed By: #### C BCA, CMP, 65929-0 #### [facility] ([id number]) [address], [address] [place] [address] AST [Catalytic activity/Vol] 18 U/L Normal 0-41 [facility] Comment on above: Performed By: #### C BCA, CMP, 29931-0 #### [facility] ([id number]) [address], [address] [place] [address] Bilirubin [Mass/Vol] 0.5 mg/dL Normal 0.3-1.2 [facility] Comment on above: Performed By: #### C BCA, CMP, 93028-5 #### [facility] ([id number]) [address], [address] [place] [address] Calcium [Mass/Vol] 9.5 mg/dL Normal 8.5-10.5 [facility] Comment on above: Performed By: #### C LEONIDAS CMP, 38974-8 #### [facility] ([id number]) [address], [address] [place] [address] Chloride [Moles/Vol] 104 mmol/L Normal 98-109 [facility] Comment on above: Performed By: #### C LEONIDAS, CMP, 14698-5 #### [facility] ([id number]) [address], [address] [place] [address] CO2 [Moles/Vol] 27 mmol/L Normal 22-32 [facility] Comment on above: Performed By: #### C TARIQ LAUREN, 03470-0 #### [facility] ([id number]) [address] [place] [address] Creatinine [Mass/Vol] 0.76 mg/dL Normal 0.40-1.00 [facility] Comment on above: Result Comment: METH OD TRACEABLE TO IDMS STANDARD Performed By: #### C TARIQ LAUREN, 20424-6 #### [facility] ([id number]) [address], [address] [place] [address] eGFR (CKD-EPI) NON-RACE DEPENDENT >90 Normal >59 [facility] Comment on above: Result Comment: Reported eGFR is based on the CKD-EPI 2020 equation that does not use a race coefficient. Performed By: #### C LEONIDAS CMP, 46048-1 #### [facility] ([id number]) [address], [address] [place] [address] Glucose [Mass/Vol] 91 mg/dL Normal 65-99 [facility] Comment on above: Performed By: #### C BCA, CMP, 00823-3 #### [facility] ([id number]) [address], [address] [place] [address] Potassium [Moles/Vol] 4.2 mmol/L Normal 3.5-5.0 [facility] Comment on above: Performed By: #### Drew BCA, CMP, 55542-4 #### [facility] ([id number]) [address], [address] [place] [address] Protein [Mass/Vol] 6.7 g/dL Normal 6.0-8.0 [facility] Comment on above: Performed By: #### Drew LAUREN, CMP, 72829-2 #### [facility] ([id number]) [address], [address] [place] [address] Sodium [Moles/Vol] 141 mmol/L Normal 134-146 [facility] Comment on above: Performed By: #### Drew LAUREN, CMP, 23378-9 #### [facility] ([id number]) [address] [place] [address] Urea nitrogen [Mass/Vol] 11 mg/dL Normal 5-23 [facility] Comment on above: Performed By: #### Drew BCA, CMP, 34589-6 #### [facility] ([id number]) [address], [address] [place] [address] Lipid 1996 panelon 4 Cholesterol [Mass/Vol] 196 mg/dL Normal 150-200 [facility] Comment on above: Performed By: #### C BCA, CMP, 22436-9 #### [facility] ([id number]) [address] [place] [address] Cholesterol in HDL [Mass/Vol] 40 mg/dL Normal >39 [facility] Comment on above: Result Comment: HDL <40 mg/dL - High Risk HDL > or = 40mg/dL- Desirable HDL >60 mg/dL - Negative Risk Performed By: #### C BCA, CMP, 72651-7 #### [facility] ([id number]) [address] [place] [address] Cholesterol in LDL [Mass/Vol] 132 mg/dL High <130 [facility] Comment on above: Result Comment: LDL <100 mg/dL - Desirable LDL >160 mg/dL - High Risk Performed By: #### Drew BCA, CMP, 05286-8 #### [facility] ([id number]) [address] [place] [address] Cholesterol in VLDL [Mass/Vol] 24 mg/dL Normal 0-30 [facility] Comment on above: Performed By: #### C BCA, CMP, 91130-1 #### [facility] ([id number]) [address], [address] [place] [address] CHOLESTEROL:HDL 4.9 Normal 1.0-5.0 [facility] Comment on above: Performed By: #### Drew BCA, CMP, 17990-7 #### [facility] ([id number]) [address] [place] [address] Triglyceride [Mass/Vol] 119 mg/dL Normal 27-150 [facility] Comment on above: Performed By: #### Drew BCA, CMP, 48411-1 #### [facility] ([id number]) [address], [facility] [address] [place] [address] MRI ANKLE RIGHT WO CONTRASTo n 08-11-2023 [...] Avinash Rose MD 08/11/23 Final result Normal [facility] XR ANKLE RT MIN 3 VWSon 04-0 [...] Stafford MD on 07/18/2023 1:57 PM Normal [facility] XR LUMBAR SPINE (2-3 VIEWS)o n 02-17-2020 [...] Suman Chow DO 02/16/20 Final result Normal [facility] XR PELVIS (1-2 VIEWS)on XR PELVIS [...] Suman Chow DO 02/16/20 Final result Normal [facility] HCG, ,Urineon 02-15 Beta HCG ( test) Ql (U) Negative Normal NEG [facility] Comment on above: Result Comment: Spec imens with hCG levels near the threshold of the test (25 mIU/mL) may give a negative or indeterminate result. In such cases, another test should be performed with a new specimen in 48-72 hours. If early is suspected clinically in this setting, correlation with quantitative serum b-hCG level is suggested. Performed By: #### U HCG #### [facility] [address] [place] [address] [employer] Network Administrator: Virgil Daniels DO , Urineon 0 Beta HCG ( test) Ql (U) Negative NEGATIVE [facility] Comment on above: Specimens with hCG l [...] acute osseous abnormality involving the lumbar spine [facility], [place] EXAMINATION: THREE XRAY VIEWS OF THE [...] malalignment is present. Minimal degenerative changes present. [facility] Yonas, [facility] Incoming Radiant Results From [email or web address] - 02/16/2020 10:16 PM EST EXAMINATION: THREE [...] acute osseous abnormality involving the lumbar spine [facility] XR PELVIS (1-2 VIEWS)on No acute abnormality of the pelvis. [facility] EXAMINATION: ONE XRA Y VIEW OF THE PELVIS 02/16/2020 10:00 pm COMPARISON: None. HISTORY: ORDERING SYSTEM PROVIDED HISTORY: right ischial spine tenderness TECHNOLOGIST PROVIDED HISTORY: right ischial spine tenderness Reason for Exam: pain Acuity: Acute Type of Exam: Initial FINDINGS: No evidence of pelvic fracture. Bilateral hips demonstrate normal alignment. No focal osseous lesion. SI joints are symmetric. [facility] Yonas, jane Incoming Radiant Results From [employer] - 02/16/2020 10:15 PM EST EXAMINATION: ONE [...] IMPRESSION: No acute abnormality of the pelvis. [facility] Vital Signs Date Time Vital Sign Value Performing Clinician Najma johnston 02-08-2024 10:37-0400 Body height 162.6 cm Cabrera Rojas PA-C [email or web address] 02-08-2024 10:37-0400 Body mass index (BMI) [Ratio] 28.15 kg/m2 Cabrera Rojas PA-C [facility] 02-08-2024 10:37-0400 Body temperature 98.2 [degF] Cabrera HERNANDEZ-Drew Work Phone: [facility] 02-08-2024 10:37-0400 Body weight 74.39 kg Cabrera HERNANDEZ-C Work Phone: [facility] 02-08-2024 10:37-0400 Diastolic blood pressure 76 mm[Hg] Cabrera HERNANDEZ-C Work Phone: [facility] 02-08-2024 10:37-0400 Heart rate 81 /min Cabrera HERNANDEZ-C Work Phone: [facility] 02-08-2024 10:37-0400 SaO2% (BldA) [Mass fraction] 97 % Cabrera HERNANDEZ-C Work Phone: [facility] 02-08-2024 10:37-0400 Systolic blood pressure 120 mm[Hg] Cabrera HERNANDEZ-C Work Phone: [facility] [employer] [facility] 02-16-2020 20:16-0500 BMI (Body Mass Index) 30.55 kg/m2 [facility] [place] 02-16-2020 20:16-0500 Body weight 80.74 kg [facility] , [place] 02-16-2020 20:16-0500 BP Diastolic 72 mm[Hg] [facility] [place] 02-16-2020 20:16-0500 BP Systolic 125 mm[Hg] [facility] [place] 02-16-2020 20:16-0500 Height 162.6 cm [facility] [place] 02-16-2020 20:16-0500 Pulse (Heart Rate) 89 /min [facility] 02-16-2020 20:16-0500 Pulse Oximetry 99 % [facility] [place] 02-16-2020 20:16-0500 Respiratory Rate 18 /min [facility] [place] Encounters Encounter Date Encounter Type Care Provider Facility Start: 02-17-2024 End: 02-17-2024 ambulatory [facility] Start: 02-08-2024 End: 02-08-2024 ambulatory [facility] Start: 02-08-2024 End: 02-08-2024 Office outpatient visit 15 minutes Cabrera Rojas PA-C Work Phone: [facility]Darwin Houser MD Comment on above: Community acquired p neumonia of right lower lobe of lung (Primary Dx) Start: 01-03-2024 End: 01-03-[address] [facility] Start: 12-28-2023 End: 12-28-[address] [facility] Start: 10-25-2023 End: 10-25-2023 ambulatory [facility] Start: 10-10-2023 End: 10-10-2023 ambulatory [facility] Start: 09-20-2023 ambulatory [facility] Start: 09-16-2023 End: 09-16-2023 ambulatory [facility] Start: 09-16-2023 End: 09-16-2023 ambulatory [facility] Start: 09-15-2023 End: 09-15-2023 Emergency department patient visit KELSEA [facility] Start: 08-11-2023 End: 08-14-2023 ambulatory MEENAKSHI Fuentes FIERRO [facility] Start: 07-18-2023 End: 07-19-2023 Emergency department patient visit [facility] Start: 02-16-2020 End: 02-17-2020 Emergency department patient visit [facility] Start: 02-16-2020 End: 02-16-2020 Emergency department patient visit Miguel Lnaier Work Phone: [facility] Comment on above: Fall, initial [...] Author Start: 07-02-2025 Tobacco Counseling Tobacco Counseling [facility] Start: 02-07-2025 Adult BMI Screening Adult BMI Screening [facility] Start: 02-07-2025 Tobacco Screening Tobacco Screening [facility] Start: 12-02-2024 Screening for malignant neoplasm of cervix Pap Smear [facility] Start: 02-15-2024 End: 02-15-2024 Patient encounter procedure 02/15/2024 1:30 PM EST Office Visit [facility]Darwin Houser MD [address] [place] [address] Cabrera Rojas PA-C [address] [place] [address] [facility]/Darwin Houser MD Start: 12-11-2023 Influenza vaccination Influenza Vaccine [facility] Start: 12-11-2019 Influenza vaccination Flu vaccine (#1) [place], [place] Start: 2004 Screening for malignant neoplasm of cervix Cervical cancer screen [place], [place] Start: 2002 DTaP,Tdap and Td Vaccines (1 - Tdap) DTaP,Tdap and Td Vaccines (1 - Tdap) [facility] Start: 2002 DTaP/Tdap/Td vaccine (1 - Tdap) DTaP/Tdap/Td vaccine (1 - Tdap) [place] Start: 2001 Adult BMI Follow Up Plan Adult BMI Follow Up Plan [facility] Start: 1998 HIV screening HIV screen [place], [place] Start: 1995 Depression Screening Depression Screening [facility] Start: 1989 Pneumococcal 0-64 years Vaccine (1 of 1 - PPSV23) Pneumococcal 0-64 years Vaccine (1 of 1 - PPSV23) [place] Start: 1984 Varicella vaccine (1 of 2 - 2-dose childhood series) Varicella vaccine (1 of 2 - 2-dose childhood series) [place] Immunizations Immunization Date Immunization Notes Care Provider Marquis powell 02-11-2014 influenza, seasonal, injectable Cabrera Rojas PA-C Work Phone: [facility] 02-11-2014 influenza virus vaccine, unspecified formulation Cabrera Rojas PA-C Work Phone: [facility] Payers Date Payer Category Payer Commercial Managed C are - [employer] [id number] 2016 Unknown [id number] 1983 Unknown [id number] [id number]. 176 1983 Unknown [id number] 2.16.840.1.430053.3.579.2. 175 1983 Unknown [id number] 2.16.840.1.219405.3.579.2. 128 1983 Unknown [id number] 2.16.840.1.478910.3.579.2. 1285 1983 Unknown [id number] 2.16.840.1.399964.3.579.2. 1285 1983 Unknown [id number] 2.16.840.1.422612.3.579.2. 128 1983 Unknown [id number] 2.16.840.1.867372.3.579.2. 128 1983 Unknown [id number] 2.16.840.1.667707.3.579.2. 128 1983 Unknown [id number] 2.16.840.1.594129.3.579.2. 128 1983 Unknown [id number] 2.16.840.1.343779.3.579.2. 128 1983 Unknown [id number] 2.16.840.1.135308.3.579.2. 128 1983 Unknown [id number] 2.16.840.1.631057.3.579.2. 128 1983 Unknown [id number] 2.16.840.1.489004.3.579.2. 128 1983 Unknown [id number] 2.16.840.1.782018.3.579.2. 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) [place] Sex Assigned At Not on file [place] Exposure to SARS-CoV -2 (event) Not sure [place] Start: 01-10-2022 Tobacco smoking stat [facility] Occasional tobacco smoker [facility] Start: 02-08-2024 Alcoholic beverage intake Lifetime non-drinker (finding) [facility] Start: 05-21-2020 End: 02-08-2024 Tobacco use panel [facility] How hard is it for y ou to pay for the very basics like food, housing, medical care, and heating Not hard at all [facility] Start: 1985 Sex assigned at Female P [facility] Start: 11-12-2014 Sex Female (finding) [facility] Start: 09-16-2018 Gender identity Identifies as female gender (finding) [facility] Start: 09-16-2018 Sexual orientation Heterosexual (fin ding) [facility] History of Present illness Narrative 02-08-2024 Cabrera Rojas PA-C - 02/08/2024 10:30 AM EDT Note Date & Type Note Facility 02-08-2024 History of Present illness Narrative Subjective Patient ID: Jennifer Vera is a 38 y.o. female. Chief Complaint Chief Complaint Patient presents with Illness Oct 12 sore throat, body aches, went to 01/21 got z-brandon, chest tightness, 01/25 back to , still having issues breathing/cough HPI HPI 01/21-UC-Z-brandon 01/2559-SS-Kbjebcm, chest congestion, mild winded. No cxr, still [...] BIOPSY W/ LOOP ELECTRODE EXCISION 2004 SECTION 2014 LAPAROSCOPY 01/2001 Family History Family History Problem [...] swollen. Left Turbinates: Not swollen. Mouth/Throat: Lips: [place]. Mouth: Mucous membranes are moist. Tongue: No [...] PA-C 02/08/24 [id number] [facility] Patient Instructions Note Date & Type Note Facility 02-08-2024 Instructions Cabrera Rojas PA-C - 02/08/2024 10:30 AM EDT Complete doxycyline 100mg BID x 7 days. Begin Probiotics once daily Begin Diflucan 150mg once, repeat in 3 days. Discussed having a cxr pros/cons. Will hold off. If s/s return will send her cxr. documented in this encounter [facility] Evaluation note Note Date & Type Note Facility Evaluation note Diagnosis Community acquired pneumonia of right lower lobe of lung- Primary documented in this encounter [facility] Summary Purpose Family History No Family History Records FoundNo Family History Records FoundNo Family History Records FoundNo Family History Records FoundNo Family History Records Found Advance Directives No Advanced Directives Records FoundDocuments on File Type Date Recorded Patient Manager Mission Expl anation ACP-Advance Directive ACP-Power of Die Polisher Discharge Instructions * Instructions* Nahum Lerma MD [...] AUTHOR 02/16/2020 [facility] DATE CREATED AUTHOR AUTHOR'S ORGANIZ ATION 08/14/2023 [facility] DATE CREATED AUTHOR AUTHOR'S ORGANIZ ATION 09/17/2023 [facility] DATE CREATED AUTHOR AUTHOR'S ORGANIZ ATION 02/10/2024 [facility] DATE CREATED AUTHOR AUTHOR'S ORGANIZ ATION 02/19/2024 [facility] Reason for Visit (unrecogniz ed section and content) Reason Comments Fall Back Pain Hip Pain Reason Comments Illness Jan 20 sore throat, body aches, went to 01/21 got [facility], chest tightness, 01/25 back to , still having issues breathing/cough Care Teams (unrecognized sec tion and content) Transportation Security Officer Relationship Specialty Start Date End Date Cabrera Rojas, GENTRY [address] [place] [address] PCP - General Physician Prenatal Genetic Counselor 10/19/23 FOR RECORDS PERTAINING TO PATIENTS WHO [...] BE BASED ON THE PRIMARY CLINICAL RECORDS. [facility]. provides no warranty or guarantee of the accuracy or completeness of information in this document.
== END 2024-02-20 07:50 | disposition home or self-care (01) ==
LOC: MRI 07:49
PROVIDERS: Visit Provider Podiatrist Foot & Ankle Surgery
DX: S92.191A Other fracture of right talus, initial encounter for closed fracture (principal); M76.61 Achilles tendinitis, right leg
CPT/HCPCS: 73721